=== PATIENT | male | born 1980 | race African-American/Black ===

== ENCOUNTER 2022-08-26 07:16 | Outpatient (REF) | payer BC, SELFPAY ==
[2022-08-26 07:22] LABS: MANUAL DIFF FLAG NO
[2022-08-26 08:22] LABS: Basophils Percent Auto 0.3 % (0-2); Eosinophils Absolute Auto 0.4 X10*3/uL (0.0-0.4); Eosinophils Percent Auto 4.3 % (0-4); Hematocrit 44.9 % (42.0-52.0); Hemoglobin 14.6 g/dl (14.0-18.0); Imm Gran Abs Auto 0.03 X10*3/uL (0.00-0.03); Imm Gran Pct Auto 0.3 % (0.0-0.4); Lymphocytes Absolute Auto 1.9 X10*3/uL (1.2-4.9); Lymphocytes Percent Auto 19.1 % (20-40); Mean Corpuscular HGB Conc 32.5 g/dl (31.0-36.0); Mean Corpuscular Hemoglobin 27.9 pg (27.0-33.0); Mean Corpuscular Volume 85.9 fL (80.0-98.0); Mean Platelet Volume 9.4 fL (9.4-12.4); Monocytes Absolute Auto 0.6 X10*3/uL (0.1-1.2); Monocytes Percent Auto 6.1 % (2-11); Neutrophils Absolute Auto 6.8 x10*3/uL (2.0-8.3); Neutrophils Percent Auto 69.9 % (45-73); Platelet Count 300 X10*3/uL (160-400); Red Blood Count 5.23 X10*6/uL (4.60-5.80); Red Cell Distribution Width 13.1 % (11.0-16.0); White Blood Count 9.8 X10*3/uL (4.8-10.8)
[2022-08-26 08:59] LABS: Alanine Aminotransferase 22 U/L (0-40); Albumin Level 4.5 g/dL (3.5-5.0); Alkaline Phosphatase 64 U/L (39-117); Anion Gap 12 (12-20); Aspartate Amino Transferase 20 U/L (5-37); Bilirubin Total 0.4 mg/dL (0.0-1.0); Blood Urea Nitrogen 20 mg/dL (9-16); Calcium 9.3 mg/dL (8.4-10.2); Carbon Dioxide 29 mmol/L (22-29); Chloride 105 mmol/L (96-108); Cholesterol 197 mg/dL; Estimated Glomerular Filt Rate > 60; Glucose Fasting 94 mg/dL (60-99); HDL Cholesterol 35 mg/dL; LDL Cholesterol Calculated 123 mg/dl; Sodium 142 mmol/L (135-145); Total Protein 7.3 g/dL (6.5-8.0); Triglycerides 197 mg/dL
== END 2022-08-26 07:17 | disposition home or self-care (01) ==
LOC: HO.LAB 07:16
PROVIDERS: PCP Internal Medicine; Visit Provider Internal Medicine
DX: Z00.00 Encounter for general adult medical examination without abnormal findings (principal); Z13.0 Encounter for screening for diseases of the blood and blood-forming organs and certain disorders involving the immune mechanism
CPT/HCPCS: 36415; 80053; 80061; 85025

== ENCOUNTER 2023-06-01 14:17 | Outpatient (AMB) | payer BC, SELFPAY ==
[2023-06-01 14:20] VITALS: BP 178/120; PULSE 90; O2SAT 99; BMI 53.1
--- NOTE | 2023-06-01 14:20 | A.OFFPC_ITS ---
Vital Signs 06/01/23 14:20 Height 5 ft 6 in Weight 329 lb BMI 53.1 BP 178/120 H Blood Pressure Location Lt brachial Position Sitting Pulse 90 Pulse Source Pulse Oximeter Pulse Oximetry (%) 99 Oxygen Delivery Method Room Air Intake Visit Reasons: Physical Exam Bran Mixer Required: No Accompanied by: Self / Same As Patient Allergies ibuprofen [Advil] Allergy (Unknown, Verified 06/01/23 14:20) hives Medication List - Last Reconciled 06/01/23 by Omar Fajardo MD albuterol sulfate 90 mcg/actuation (ProAir HFA) 2 puffs inhalation Q4H PRN 90 days metoprolol tartrate 25 mg PO BID Tobacco use date assessed: 08/31/22 Dental Screening Dental Screen Date: 06/01/23 Did you have a dental visit in the last 12 months?: Yes Did you have a dental problem in the last 6 months where you did not have access to dental care?: No Was dental information given to patient?: Patient has dentist HPI Physical Exam HPI Details HTN and asthma on Rx; PFSH Medical History Morbid obesity Hypertension Surgical History History of wisdom tooth extraction Family History Father No problems noted. Mother No problems noted. Social History Housing: House Patient Tobacco Use Status: Never used Tobacco e-Cigarette/Vaping Use: Never Used Second Hand Smoke Exposure: No service: No Current occupational status: employed Cognitive needs: No Hearing needs: No Vision needs: Yes Questionnaire PHQ-9 Over the last 2 weeks, how often have you been bothered by any of the following problems? 1. Little interest or pleasure in doing things: not at all 2. Feeling down, depressed, or hopeless: not at all 3. Trouble falling or staying asleep, or sleeping too much: not at all 4. Feeling tired or having little energy: not at all 5. Poor appetite or overeating: not at all 6. Feeling bad about yourself - or that you are a failure or have let yourself or your family down: not at all 7. Trouble concentrating on things, such as reading the newspaper or watching television: not at all 8. Moving or speaking so slowly that other people could have noticed. Or the opposite - being so fidgety or restless that you have been moving around a lot more than usual: not at all 9. Thoughts that you would be better off or of hurting yourself in some way: not at all Total score: 0 Depression Screening Interpretation: Negative Depression Screening Done: Yes 17431 - PHQ-9 Billing: Yes Source: Developed by Drs. Grzegorz Barragan, Judi Calvillo, Kb Baker and colleagues, with an educational leticia from [employer]. Thrive Questionnaire Date Thrive assessed: 08/31/22 AUDIT C Alcohol Use Questionnaire (AUDIT-C) Score Reviewed/Action Taken: Yes MO-7 AMB Questionnaire MO-7 Date MO - 7 assessed: 08/31/22 Source: Developed by Drs. Grzegorz Barragan, Judi Calvillo, Kb Baker and colleagues, with an educational leticia from [employer]. Review of Systems Const Denies chills, Denies fatigue, Denies headache(s) and Denies weight loss Eyes Denies change in vision, Denies diplopia and Denies eye pain ENT Denies vertigo, Denies dizziness, Denies headache(s) and Denies nasal discharge Card Denies chest pain, Denies rapid heart rate and Denies dyspnea on exertion Resp Denies chest congestion, Denies cough, Denies pain with cough and Denies dyspnea on exertion GI Denies abdominal pain, Denies hematochezia and Denies change in bowel habits Musc Denies myalgias, Denies arthralgias and Denies joint swelling Skin/Breast Denies lesions and Denies unusual bruising Neuro Denies vertigo, Denies dizziness, Denies headache(s) and Denies focal weakness Endo Denies fatigue Physical exam (Primary Care) Vital Signs: Last Vital Signs Pulse 90 06/01/23 14:20 BP 178/120 H 06/01/23 14:20 Pulse Ox 99 06/01/23 14:20 Oxygen Delivery Method Room Air 06/01/23 14:20 BMI result Body Mass Index 53.1 Tobacco/Smoking Status: Tobacco use Status Tobacco use date assessed 08/31/22 06/01/23 14:21 Patient Tobacco Use Status Never used Tobacco 06/01/23 14:21 e-Cigarette/Vaping Use Never Used 06/01/23 14:21 PHQ-9: PHQ-9 Score PHQ-9: Total score 0 06/01/23 14:41 Depression Screening Interpretation: Negative Thrive Assessment: Date of Thrive Assessment Date Thrive assessed 08/31/22 06/01/23 14:21 Const General: cooperative, healthy appearing and no acute distress Orientation/consciousness: oriented to person, oriented to place and oriented to time HENAK Head: Yes normal to inspection, Yes normocephalic and Yes atraumatic Mouth: Normal oral and palatal mucosa present and tongue normal Throat: Yes posterior oropharynx normal and Yes uvula midline Eyes General: appearance normal, both eyes and all related structures Neck Neck: Yes normal visual inspection, Yes full ROM and Yes no lymphadenopathy Thyroid: Thyroid normal Carotids: normal carotid upstroke Chest Chest palpation & inspection: normal inspection of the chest Resp Effort & Inspection: normal respiratory effort and able to speak in complete sentences Auscultation: clear to auscultation bilaterally Cardio Jugular venous distension: no JVD Palpation: normal PMI Rate: regular rate Rhythm: regular rhythm Heart sounds: S1 normal heart sound present and S2 normal heart sound present GI Inspection: Yes normal to inspection Palpation (GI): Soft to palpation and No hepatosplenomegaly present Auscultation: normal bowel sounds General: Yes no CVA tenderness Back/Spine/Pelvis Back: no CVA tenderness Skin General skin exam: no rashes or lesions noted Neuro General: oriented to person, oriented to place and oriented to time Extrem General: Yes normal to inspection and Yes full ROM Office Procedures Flu Questionnaire Does the patient have a severe egg allergy?: No Does the patient have severe life threatening allergies?: No Does the patient have a fever or illness today?: No Has the patient ever had Guillain-[place] Syndrome?: No Has the patient ever had any past reaction to a flu shot?: No Immunizations flu vacc [id number] 6mos up(PF) 60 mcg(15 mcgx4)/0.5 mL IM syringe Performing Provider: Omar Fajardo MD Performing Location: [facility] Documented (not given) by: CECILY Johnston on 06/01/23 14:41 Reason Not Given: Not Given Assessment and Plan Assessment & Plan (1) Hypertension: Code(s): I10 - Essential (primary) hypertension Plan: labs and f/u 2 weeks (2) Physical exam: Code(s): Z00.00 - Encounter for general adult medical examination without abnormal findings Plan: labs (3) Asthma: Code(s): J45.909 - Unspecified asthma, uncomplicated Plan: stable; same rx Orders: Orders Lipid Panel Today E78.5 - Hyperlipidemia, unspecified Complete Blood Count Auto Diff Today D64.9 - Anemia, unspecified Comprehensive Lavina. Panel Fast Today N28.9 - Disorder of kidney and ureter, unspecified Influenza [id number] Immunization Today Z23 - Encounter for immunization Thyroid Stimulating Hormone Today E03.9 - Hypothyroidism, unspecified Coding Level of Care Code Est Pt Prev Care 40-64y(52223) Diagnoses Hypertension I10 Physical exam Z00.00 Asthma J45.909
== END 2023-06-01 14:35 | disposition home or self-care (01) ==
PROVIDERS: PCP Internal Medicine; Visit Provider Internal Medicine
DX: Z00.00 Encounter for general adult medical examination without abnormal findings (principal); F33.9 Major depressive disorder, recurrent, unspecified; E66.3 Overweight
CPT/HCPCS: 99395; 99396

== ENCOUNTER 2023-09-09 07:30 | Outpatient (REF) | payer BC, SELFPAY ==
[2023-09-09 07:55] LABS: MANUAL DIFF FLAG NO
[2023-09-09 09:14] LABS: Basophils Percent Auto 0.4 % (0-2); Eosinophils Absolute Auto 0.5 X10*3/uL (0.0-0.4); Eosinophils Percent Auto 5.3 % (0-4); Hematocrit 45.3 % (42.0-52.0); Hemoglobin 14.5 g/dl (14.0-18.0); Imm Gran Abs Auto 0.03 X10*3/uL (0.00-0.03); Imm Gran Pct Auto 0.3 % (0.0-0.4); Lymphocytes Absolute Auto 1.8 X10*3/uL (1.2-4.9); Lymphocytes Percent Auto 20.6 % (20-40); Mean Corpuscular Hemoglobin 27.6 pg (27.0-33.0); Mean Corpuscular Volume 86.1 fL (80.0-98.0); Mean Platelet Volume 9.1 fL (9.4-12.4); Monocytes Absolute Auto 0.5 X10*3/uL (0.1-1.2); Monocytes Percent Auto 6.1 % (2-11); Neutrophils Percent Auto 67.3 % (45-73); Platelet Count 326 X10*3/uL (160-400); Red Blood Count 5.26 X10*6/uL (4.60-5.80); Red Cell Distribution Width 13.3 % (11.0-16.0); White Blood Count 8.9 X10*3/uL (4.8-10.8)
[2023-09-09 10:09] LABS: Alanine Aminotransferase 26 U/L (0-40); Albumin Level 4.3 g/dL (3.5-5.0); Alkaline Phosphatase 57 U/L (39-117); Anion Gap 13 (12-20); Aspartate Amino Transferase 20 U/L (5-37); Bilirubin Total 0.4 mg/dL (0.0-1.0); Blood Urea Nitrogen 17 mg/dL (9-16); Calcium 9.4 mg/dL (8.4-10.2); Carbon Dioxide 29 mmol/L (22-29); Chloride 105 mmol/L (96-108); Cholesterol 214 mg/dL (<200); Estimated Glomerular Filt Rate > 60; Glucose Fasting 99 mg/dL (60-99); HDL Cholesterol 39 mg/dL (>40); LDL Cholesterol Calculated 142 mg/dL (<100); Potassium 4.3 mmol/L (3.3-5.1); Sodium 143 mmol/L (135-145); Total Protein 7.7 g/dL (6.5-8.0); Triglycerides 167 mg/dL (<150)
[2023-09-09 10:25] LABS: Thyroid Stimulating Hormone 2.44 uIU/mL (0.32-4.0)
== END 2023-09-09 07:31 | disposition home or self-care (01) ==
LOC: HO.LAB 07:30
PROVIDERS: PCP Internal Medicine; Visit Provider Internal Medicine
DX: D64.9 Anemia, unspecified (principal); N28.9 Disorder of kidney and ureter, unspecified; E03.9 Hypothyroidism, unspecified; E78.5 Hyperlipidemia, unspecified
CPT/HCPCS: 36415; 80053; 80061; 84443; 85025

== ENCOUNTER 2023-09-11 14:17 | Outpatient (AMB) | payer BC, SELFPAY ==
[2023-09-11 14:20] VITALS: BP 156/90; PULSE 78; O2SAT 99; BMI 54.1
--- NOTE | 2023-09-11 14:20 | A.OFFPC_ITS ---
Vital Signs 09/11/23 14:20 Height 5 ft 6 in Weight 335 lb BMI 54.1 BP 156/90 H Blood Pressure Location Lt brachial Position Sitting Pulse 78 Pulse Source Pulse Oximeter Pulse Oximetry (%) 99 Oxygen Delivery Method Room Air Intake Visit Reasons: 2 week follow up, rescheduled from 07/03 End Finder Forming Department Required: No Switchboard Operator Assistant: Not Required per policy Accompanied by: Self / Same As Patient Allergies ibuprofen [Advil] Allergy (Unknown, Verified 09/11/23 14:21) hives Tobacco use date assessed: 09/11/23 Dental Screening Dental Screen Date: 09/11/23 Did you have a dental visit in the last 12 months?: Yes Did you have a dental problem in the last 6 months where you did not have access to dental care?: No Was dental information given to patient?: Patient has dentist HPI 2 week follow up, rescheduled from 07/03 HPI Details HTN on rx; compliant; bp better but still high PFSH Medical History Morbid obesity Hypertension Surgical History History of wisdom tooth extraction Family History Father No problems noted. Mother No problems noted. Social History Housing: House Patient Tobacco Use Status: Never used Tobacco e-Cigarette/Vaping Use: Never Used Second Hand Smoke Exposure: No service: No Current occupational status: employed Cognitive needs: No Hearing needs: No Vision needs: Yes Questionnaire PHQ-9 Over the last 2 weeks, how often have you been bothered by any of the following problems? 1. Little interest or pleasure in doing things: not at all 2. Feeling down, depressed, or hopeless: not at all 3. Trouble falling or staying asleep, or sleeping too much: not at all 4. Feeling tired or having little energy: not at all 5. Poor appetite or overeating: not at all 6. Feeling bad about yourself - or that you are a failure or have let yourself or your family down: not at all 7. Trouble concentrating on things, such as reading the newspaper or watching television: not at all 8. Moving or speaking so slowly that other people could have noticed. Or the opposite - being so fidgety or restless that you have been moving around a lot more than usual: not at all 9. Thoughts that you would be better off or of hurting yourself in some way: not at all Total score: 0 Depression Screening Interpretation: Negative Depression Screening Done: Yes 52424 - PHQ-9 Billing: Yes Source: Developed by Drs. Grzegorz Barragan, Judi Calvillo, Kb Baker and colleagues, with an educational leticia from [employer]. Thrive Questionnaire Date Thrive assessed: 09/11/23 I am a: Patient What is your living situation today?: I have a steady place to live Within the past 12 months, did the food you bought not last and you didn't have the money to get more?: Never true Within the past 12 months, did you worry whether your food would run out before you got money to buy more?: Never true Do you have trouble paying for medicines?: No Do you have trouble getting transportation to medical appointments?: No Do you have trouble paying your heating and electricity bill?: No Do you have trouble taking care of your child, family member or friend?: No Do you have trouble with day-to-day activities such as bathing, preparing meals, shopping, managing finances, etc.?: No Are you currently unemployed and looking for a job?: No Are you interested in more education?: No THRIVE Score: 0 AUDIT C Alcohol Use Questionnaire (AUDIT-C) 1. How often do you have a drink containing alcohol?: Never Total Score: 0 Score Reviewed/Action Taken: Yes MO-7 AMB Questionnaire MO-7 Date MO - 7 assessed: 09/11/23 Feeling nervous, anxious, or on edge: 0 = Not at all Not being able to stop or control worryin = Not at all Worrying too much about different things: 0 = Not at all Trouble relaxin = Not at all Being so restless that it is hard to sit still: 0 = Not at all Becoming easily annoyed or irritable: 0 = Not at all Feeling afraid as if something awful might happen: 0 = Not at all Total MO-7 score (0-4 normal; 5-9 mild; 10-14 moderate; 15-21 severe): 0 Source: Developed by Drs. Grzegorz Barragan, Judi Calvillo, Kb Baker and colleagues, with an educational leticia from [employer]. Review of Systems Const Denies chills, Denies headache(s) and Denies weight loss ENT Denies headache(s) Card Denies chest pain, Denies syncope, Denies irregular heart rhythm and Denies dyspnea Resp Denies chest congestion, Denies cough and Denies dyspnea GI Denies abdominal pain, Denies change in stool character, Denies nausea and Denies vomiting Musc Denies deformity and Denies joint swelling Neuro Denies syncope and Denies headache(s) Physical exam (Primary Care) Vital Signs: Last Vital Signs Pulse 78 09/11/23 14:20 BP 156/90 H 09/11/23 14:20 Pulse Ox 99 09/11/23 14:20 Oxygen Delivery Method Room Air 09/11/23 14:20 BMI result Body Mass Index 54.1 Tobacco/Smoking Status: Tobacco use Status Tobacco use date assessed 09/11/23 09/11/23 14:22 Patient Tobacco Use Status Never used Tobacco 09/11/23 14:22 e-Cigarette/Vaping Use Never Used 09/11/23 14:22 PHQ-9: PHQ-9 Score PHQ-9: Total score 0 09/11/23 14:22 Depression Screening Interpretation: Negative Thrive Assessment: Date of Thrive Assessment Date Thrive assessed 09/11/23 09/11/23 14:22 Const General: cooperative, comfortable, no acute distress and alert Neck Neck: Yes no lymphadenopathy Thyroid: Thyroid normal Resp Effort & Inspection: normal respiratory effort Auscultation: clear to auscultation bilaterally Percussion: percussion normal Cardio Jugular venous distension: no JVD Palpation: normal PMI Rate: regular rate Rhythm: regular rhythm Heart sounds: S1 normal heart sound present and S2 normal heart sound present GI Inspection: Yes normal to inspection Palpation (GI): No hepatosplenomegaly present Skin General skin exam: no rashes or lesions noted Extrem General: Yes no clubbing, cyanosis or edema Assessment and Plan Assessment & Plan (1) Hypertension: Code(s): I10 - Essential (primary) hypertension Plan: increase metoprolol to 50mg bid Medications: New metoprolol tartrate 50 mg PO BID 180 tabs 3RF Coding Level of Care Code Est Pt Level 3 (84430) Diagnoses Hypertension I10
== END 2023-09-11 14:36 | disposition home or self-care (01) ==
PROVIDERS: PCP Internal Medicine; Visit Provider Internal Medicine
DX: I10 Essential (primary) hypertension (principal)
CPT/HCPCS: 99213

== ENCOUNTER 2023-10-10 14:33 | Outpatient (AMB) | payer BC, SELFPAY ==
[2023-10-10 14:33] VITALS: BP 178/100; PULSE 79; O2SAT 98; BMI 54.7
--- NOTE | 2023-10-10 14:33 | MHC.PC.OV ---
Vital Signs 10/10/23 14:33 Height 5 ft 6 in Weight 339 lb BMI 54.7 BP 178/100 H Blood Pressure Location Lt brachial Position Sitting Pulse 79 Pulse Source Pulse Oximeter Pulse Oximetry (%) 98 Oxygen Delivery Method Room Air Intake Visit Reasons: 1 month f/u Pre K Special Education Teacher Required: No Dry Transfer Worker: Not Required per policy Accompanied by: Self / Same As Patient Allergies ibuprofen [Advil] Allergy (Unknown, Verified 09/11/23 14:21) hives Medication List - Last Reconciled 10/11/23 by Omar Fajardo MD albuterol sulfate 90 mcg/actuation (ProAir HFA) 2 puffs inhalation Q4H PRN 90 days hydrochlorothiazide 25 mg PO DAILY metoprolol tartrate 50 mg PO BID Tobacco use date assessed: 09/11/23 Dental Screening Dental Screen Date: 10/10/23 Did you have a dental visit in the last 12 months?: Yes Did you have a dental problem in the last 6 months where you did not have access to dental care?: No Was dental information given to patient?: Patient has dentist HPI 1 month f/u HPI Details BP f/u; still high; compliant [facility] Medical History Morbid obesity Hypertension Surgical History History of wisdom tooth extraction Family History (Updated 10/10/23 @ 14:34 by CECILY Johnston) Father No problems noted. Mother No problems noted. Social History Housing: House Patient Tobacco Use Status: Never used Tobacco e-Cigarette/Vaping Use: Never Used Second Hand Smoke Exposure: No service: No Current occupational status: employed Cognitive needs: No Hearing needs: No Vision needs: Yes (glasses) Questionnaire Thrive Questionnaire Date Thrive assessed: 09/11/23 MO-7 AMB Questionnaire MO-7 Date MO - 7 assessed: 09/11/23 Source: Developed by Drs. Grzegorz Barragan, Judi Calvillo, Kb Baker and colleagues, with an educational leticia from [employer]. Review of Systems Const Denies chills, Denies headache(s) and Denies weight loss ENT Denies headache(s) Card Denies chest pain, Denies syncope, Denies irregular heart rhythm and Denies dyspnea Resp Denies chest congestion, Denies cough and Denies dyspnea GI Denies abdominal pain, Denies change in stool character, Denies nausea and Denies vomiting Musc Denies deformity and Denies joint swelling Neuro Denies syncope and Denies headache(s) Physical exam (Primary Care) Vital Signs: Last Vital Signs Pulse 79 10/10/23 14:33 BP 178/100 H 10/10/23 14:33 Pulse Ox 98 10/10/23 14:33 Oxygen Delivery Method Room Air 10/10/23 14:33 BMI result Body Mass Index 54.7 Tobacco/Smoking Status: Tobacco use Status Tobacco use date assessed 09/11/23 10/10/23 14:34 Patient Tobacco Use Status Never used Tobacco 10/10/23 14:34 e-Cigarette/Vaping Use Never Used 10/10/23 14:34 Thrive Assessment: Date of Thrive Assessment Date Thrive assessed 09/11/23 10/10/23 14:34 Const General: cooperative, comfortable, no acute distress and alert Neck Neck: Yes no lymphadenopathy Thyroid: Thyroid normal Resp Effort & Inspection: normal respiratory effort Auscultation: clear to auscultation bilaterally Percussion: percussion normal Cardio Jugular venous distension: no JVD Palpation: normal PMI Rate: regular rate Rhythm: regular rhythm Heart sounds: S1 normal heart sound present and S2 normal heart sound present GI Inspection: Yes normal to inspection Palpation (GI): No hepatosplenomegaly present Skin General skin exam: no rashes or lesions noted Extrem General: Yes no clubbing, cyanosis or edema Assessment and Plan Assessment & Plan (1) Hypertension: Code(s): I10 - Essential (primary) hypertension Plan: add rx Medications: New hydrochlorothiazide 25 mg PO DAILY 90 tabs 8RF Coding Level of Care Code Est Pt Level 3 (52751) Diagnoses Hypertension I10
== END 2023-10-10 14:45 | disposition home or self-care (01) ==
PROVIDERS: PCP Internal Medicine; Visit Provider Internal Medicine
DX: I10 Essential (primary) hypertension (principal)
CPT/HCPCS: 99213

== ENCOUNTER 2023-11-15 11:30 | Outpatient (AMB) | payer BC, SELFPAY ==
[2023-11-15 11:32] VITALS: BP 162/110; PULSE 70; O2SAT 95; BMI 53.9
--- NOTE | 2023-11-15 11:32 | A.OFFPC_ITS ---
Vital Signs 11/15/23 11:32 Height 5 ft 6 in Weight 334 lb 0.2 oz BMI 53.9 BP 162/110 H Blood Pressure Location Lt brachial Position Sitting Pulse 70 Pulse Source Pulse Oximeter Pulse Oximetry (%) 95 Oxygen Delivery Method Room Air Intake Visit Reasons: 1mth f/u Die Try Out Worker Stamping Required: No Allergies ibuprofen [Advil] Allergy (Unknown, Verified 11/15/23 11:33) hives Medication List - Last Reconciled 11/16/23 by Omar Fajardo MD albuterol sulfate 90 mcg/actuation (ProAir HFA) 2 puffs inhalation Q4H PRN 90 days hydrochlorothiazide 25 mg PO DAILY metoprolol tartrate 50 mg PO BID Tobacco use date assessed: 11/15/23 Dental Screening Dental Screen Date: 10/10/23 HPI 1mth f/u HPI Details HTN; BP better on new rx at home PFSH Medical History Morbid obesity Hypertension Surgical History History of wisdom tooth extraction Family History (Updated 10/10/23 @ 14:34 by CECILY Johnston) Father No problems noted. Mother No problems noted. Social History Housing: House Patient Tobacco Use Status: Never used Tobacco e-Cigarette/Vaping Use: Never Used Second Hand Smoke Exposure: No service: No Current occupational status: employed Cognitive needs: No Hearing needs: No Vision needs: Yes (glasses) Questionnaire PHQ-9 Over the last 2 weeks, how often have you been bothered by any of the following problems? 1. Little interest or pleasure in doing things: not at all 2. Feeling down, depressed, or hopeless: not at all 3. Trouble falling or staying asleep, or sleeping too much: not at all 4. Feeling tired or having little energy: not at all 5. Poor appetite or overeating: not at all 6. Feeling bad about yourself - or that you are a failure or have let yourself or your family down: not at all 7. Trouble concentrating on things, such as reading the newspaper or watching television: not at all 8. Moving or speaking so slowly that other people could have noticed. Or the opposite - being so fidgety or restless that you have been moving around a lot more than usual: not at all 9. Thoughts that you would be better off or of hurting yourself in some way: not at all Total score: 0 Depression Screening Interpretation: Negative Depression Screening Done: Yes 96587 - PHQ-9 Billing: Yes Source: Developed by Drs. Grzegorz Barragan, Kb Green and colleagues, with an educational leticia from [employer]. Thrive Questionnaire Date Thrive assessed: 09/11/23 AUDIT C Alcohol Use Questionnaire (AUDIT-C) 1. How often do you have a drink containing alcohol?: Never Total Score: 0 Score Reviewed/Action Taken: Yes MO-7 AMB Questionnaire MO-7 Date MO - 7 assessed: 09/11/23 Source: Developed by Drs. Grzegorz Barragan, Kb Green and colleagues, with an educational leticia from [employer]. Review of Systems Const Denies chills, Denies headache(s) and Denies weight loss ENT Denies headache(s) Card Denies chest pain, Denies syncope, Denies irregular heart rhythm and Denies dyspnea Resp Denies chest congestion, Denies cough and Denies dyspnea GI Denies abdominal pain, Denies change in stool character, Denies nausea and Denies vomiting Musc Denies deformity and Denies joint swelling Neuro Denies syncope and Denies headache(s) Physical exam (Primary Care) Vital Signs: Last Vital Signs Pulse 70 11/15/23 11:32 BP 162/110 H 11/15/23 11:32 Pulse Ox 95 11/15/23 11:32 Oxygen Delivery Method Room Air 11/15/23 11:32 BMI result Body Mass Index 53.9 Tobacco/Smoking Status: Tobacco use Status Tobacco use date assessed 11/15/23 11/15/23 11:37 Patient Tobacco Use Status Never used Tobacco 11/15/23 11:37 e-Cigarette/Vaping Use Never Used 11/15/23 11:37 PHQ-9: PHQ-9 Score PHQ-9: Total score 0 11/15/23 11:37 Depression Screening Interpretation: Negative Thrive Assessment: Date of Thrive Assessment Date Thrive assessed 09/11/23 11/15/23 11:37 Const General: cooperative, comfortable, no acute distress and alert Neck Neck: Yes no lymphadenopathy Thyroid: Thyroid normal Resp Effort & Inspection: normal respiratory effort Auscultation: clear to auscultation bilaterally Percussion: percussion normal Cardio Jugular venous distension: no JVD Palpation: normal PMI Rate: regular rate Rhythm: regular rhythm Heart sounds: S1 normal heart sound present and S2 normal heart sound present GI Inspection: Yes normal to inspection Palpation (GI): No hepatosplenomegaly present Skin General skin exam: no rashes or lesions noted Extrem General: Yes no clubbing, cyanosis or edema Assessment and Plan Assessment & Plan (1) Hypertension: Code(s): I10 - Essential (primary) hypertension Plan: stable; same rx; cont to lose weight Coding Level of Care Code Est Pt Level 3 (87932) Diagnoses Hypertension I10
== END 2023-11-15 11:49 | disposition home or self-care (01) ==
PROVIDERS: PCP Internal Medicine; Visit Provider Internal Medicine
DX: I10 Essential (primary) hypertension (principal)
CPT/HCPCS: 99213

== ENCOUNTER 2024-01-18 11:33 | Outpatient (AMB) | payer BC, SELFPAY ==
[2024-01-18 11:35] VITALS: BP 168/118; PULSE 63; O2SAT 96; BMI 53.4
--- NOTE | 2024-01-18 11:35 | MHC.PC.OV ---
Vital Signs 01/18/24 11:35 Height 5 ft 6 in Weight 331 lb BMI 53.4 BP 168/118 H Blood Pressure Location Lt brachial Position Sitting Pulse 63 Pulse Source Pulse Oximeter Pulse Oximetry (%) 96 Oxygen Delivery Method Room Air Intake Visit Reasons: Meds Follow Up Allergies ibuprofen [Advil] Allergy (Unknown, Verified 11/15/23 11:33) hives Medication List - Last Reconciled 01/19/24 by Omar Fajardo MD albuterol sulfate 90 mcg/actuation (ProAir HFA) 2 puffs inhalation Q4H PRN 90 days hydrochlorothiazide 25 mg PO DAILY metoprolol tartrate 50 mg PO BID Tobacco use date assessed: 01/18/24 Dental Screening Dental Screen Date: 10/10/23 HPI Meds Follow Up HPI Details htn; compliant but bp has been high PFSH Medical History Morbid obesity Hypertension Surgical History History of wisdom tooth extraction Family History (Updated 10/10/23 @ 14:34 by CECILY Johnston) Father No problems noted. Mother No problems noted. Social History Housing: House Patient Tobacco Use Status: Never used Tobacco e-Cigarette/Vaping Use: Never Used Second Hand Smoke Exposure: No service: No Current occupational status: employed Cognitive needs: No Hearing needs: No Vision needs: Yes (glasses) Questionnaire Thrive Questionnaire Date Thrive assessed: 09/11/23 AUDIT C Alcohol Use Questionnaire (AUDIT-C) 1. How often do you have a drink containing alcohol?: Never 3. How often do you have six or more drinks on one occasion?: Never Total Score: 0 Score Reviewed/Action Taken: Yes MO-7 AMB Questionnaire MO-7 Date MO - 7 assessed: 09/11/23 Source: Developed by Drs. Grzegorz Barragan, Judi Calvillo, Kb Baker and colleagues, with an educational leticia from [employer]. Review of Systems Const Denies chills, Denies headache(s) and Denies weight loss ENT Denies headache(s) Card Denies chest pain, Denies syncope, Denies irregular heart rhythm and Denies dyspnea Resp Denies chest congestion, Denies cough and Denies dyspnea GI Denies abdominal pain, Denies change in stool character, Denies nausea and Denies vomiting Musc Denies deformity and Denies joint swelling Neuro Denies syncope and Denies headache(s) Physical exam (Primary Care) Vital Signs: Last Vital Signs Pulse 63 01/18/24 11:35 BP 168/118 H 01/18/24 11:35 Pulse Ox 96 01/18/24 11:35 Oxygen Delivery Method Room Air 01/18/24 11:35 BMI result Body Mass Index 53.4 Tobacco/Smoking Status: Tobacco use Status Tobacco use date assessed 01/18/24 01/18/24 11:40 Patient Tobacco Use Status Never used Tobacco 01/18/24 11:40 e-Cigarette/Vaping Use Never Used 01/18/24 11:40 Thrive Assessment: Date of Thrive Assessment Date Thrive assessed 09/11/23 01/18/24 11:40 Const General: cooperative, comfortable, no acute distress and alert Neck Neck: Yes no lymphadenopathy Thyroid: Thyroid normal Resp Effort & Inspection: normal respiratory effort Auscultation: clear to auscultation bilaterally Percussion: percussion normal Cardio Jugular venous distension: no JVD Palpation: normal PMI Rate: regular rate Rhythm: regular rhythm Heart sounds: S1 normal heart sound present and S2 normal heart sound present GI Inspection: Yes normal to inspection Palpation (GI): No hepatosplenomegaly present Skin General skin exam: no rashes or lesions noted Extrem General: Yes no clubbing, cyanosis or edema Assessment and Plan Assessment & Plan (1) Hypertension: Code(s): I10 - Essential (primary) hypertension Plan: increase metop to 100 bid Medications: New metoprolol tartrate 100 mg PO BID 60 tabs 8RF Discontinued metoprolol tartrate Discontinued Reason: Doctor's Order 50 mg PO BID 180 tabs 3RF Coding Level of Care Code Est Pt Level 3 (57902) Diagnoses Hypertension I10
== END 2024-01-18 11:51 | disposition home or self-care (01) ==
PROVIDERS: PCP Internal Medicine; Visit Provider Internal Medicine
DX: I10 Essential (primary) hypertension (principal)
CPT/HCPCS: 99213

== ENCOUNTER 2024-04-30 14:29 | Outpatient (AMB) | payer BC, SELFPAY ==
[2024-04-30 14:35] VITALS: BP 162/90; PULSE 70; O2SAT 94; BMI 52.9
--- NOTE | 2024-04-30 14:35 | A.OFFPC_ITS ---
Vital Signs 04/30/24 14:35 Height 5 ft 6 in Weight 328 lb BMI 52.9 BP 162/90 H Blood Pressure Location Lt brachial Position Sitting Pulse 70 Pulse Source Pulse Oximeter Pulse Oximetry (%) 94 Oxygen Delivery Method Room Air Intake Visit Reasons: 3 Month F/U Intake Note: Pt reports BP higher at doctor's office than when he takes it at home due to stress. Hospital Educator Required: No Accompanied by: Self / Same As Patient Allergies ibuprofen [Advil] Allergy (Unknown, Verified 04/30/24 14:37) hives Medication List - Last Reconciled 04/30/24 by Omar Fajardo MD albuterol sulfate 90 mcg/actuation 2 puffs inhalation Q4H PRN 90 days hydrochlorothiazide 25 mg PO DAILY metoprolol tartrate 100 mg PO BID Tobacco use date assessed: 01/18/24 Dental Screening Dental Screen Date: 10/10/23 HPI 3 Month F/U HPI Details HTN on rx; BP 130 at home; compliant [facility] Medical History Morbid obesity Hypertension Surgical History History of wisdom tooth extraction Family History (Updated 10/10/23 @ 14:34 by CECILY Johnston) Father No problems noted. Mother No problems noted. Social History Housing: House Patient Tobacco Use Status: Never used Tobacco Tobacco use type: Cigarette e-Cigarette/Vaping Use: Never Used Second Hand Smoke Exposure: No service: No Current occupational status: employed Cognitive needs: No Hearing needs: No Vision needs: Yes (glasses) Questionnaire PHQ-9 Over the last 2 weeks, how often have you been bothered by any of the following problems? 1. Little interest or pleasure in doing things: not at all 2. Feeling down, depressed, or hopeless: not at all 3. Trouble falling or staying asleep, or sleeping too much: not at all 4. Feeling tired or having little energy: not at all 5. Poor appetite or overeating: not at all 6. Feeling bad about yourself - or that you are a failure or have let yourself or your family down: not at all 7. Trouble concentrating on things, such as reading the newspaper or watching television: not at all 8. Moving or speaking so slowly that other people could have noticed. Or the opposite - being so fidgety or restless that you have been moving around a lot more than usual: not at all 9. Thoughts that you would be better off or of hurting yourself in some way: not at all Total score: 0 Depression Screening Interpretation: Negative Depression Screening Done: Yes [id number] - PHQ-9 Billing: Yes Source: Developed by Drs. Grzegorz Barragan, Kb Green and colleagues, with an educational leticia from [employer]. Thrive Questionnaire Date Thrive assessed: 09/11/23 Are you currently unemployed and looking for a job?: No AUDIT C Alcohol Use Questionnaire (AUDIT-C) 1. How often do you have a drink containing alcohol?: 2-4 times a month 2. How many drinks containing alcohol do you have on a typical day when you are drinking?: 5 or 6 3. How often do you have six or more drinks on one occasion?: Monthly Total Score: 6 MO-7 AMB Questionnaire MO-7 Date MO - 7 assessed: 09/11/23 Source: Developed by Drs. Grzegorz Barragan, Judi Calvillo, Kb Baker and colleagues, with an educational leticia from [employer]. Review of Systems Const Denies chills, Denies headache(s) and Denies weight loss ENT Denies headache(s) Card Denies chest pain, Denies syncope, Denies irregular heart rhythm and Denies dyspnea Resp Denies chest congestion, Denies cough and Denies dyspnea GI Denies abdominal pain, Denies change in stool character, Denies nausea and Denies vomiting Musc Denies deformity and Denies joint swelling Neuro Denies syncope and Denies headache(s) Physical exam (Primary Care) Vital Signs: Last Vital Signs Pulse 70 04/30/24 14:35 BP 162/90 H 04/30/24 14:35 Pulse Ox 94 04/30/24 14:35 Oxygen Delivery Method Room Air 04/30/24 14:35 BMI result Body Mass Index 52.9 Tobacco/Smoking Status: Tobacco use Status Tobacco use date assessed 01/18/24 04/30/24 14:43 Patient Tobacco Use Status Never used Tobacco 04/30/24 14:43 Tobacco use type Cigarette 04/30/24 14:43 e-Cigarette/Vaping Use Never Used 04/30/24 14:43 PHQ-9: PHQ-9 Score PHQ-9: Total score 0 04/30/24 14:45 Depression Screening Interpretation: Negative Thrive Assessment: Date of Thrive Assessment Date Thrive assessed 09/11/23 04/30/24 14:43 Const General: cooperative, comfortable, no acute distress and alert Neck Neck: Yes no lymphadenopathy Thyroid: Thyroid normal Resp Effort & Inspection: normal respiratory effort Auscultation: clear to auscultation bilaterally Percussion: percussion normal Cardio Jugular venous distension: no JVD Palpation: normal PMI Rate: regular rate Rhythm: regular rhythm Heart sounds: S1 normal heart sound present and S2 normal heart sound present GI Inspection: Yes normal to inspection Palpation (GI): No hepatosplenomegaly present Skin General skin exam: no rashes or lesions noted Extrem General: Yes no clubbing, cyanosis or edema Assessment and Plan Assessment & Plan (1) Hypertension: Code(s): I10 - Essential (primary) hypertension Plan: stable; same rx Orders: Referrals General Surgery Referral L72.3 - Sebaceous cyst Coding Level of Care Code Est Pt Level 3 (61046) Diagnoses Hypertension I10
== END 2024-04-30 14:53 | disposition home or self-care (01) ==
PROVIDERS: PCP Internal Medicine; Visit Provider Internal Medicine
DX: I10 Essential (primary) hypertension (principal)

== ENCOUNTER → 2024-04-30 14:29 | Outpatient (BNVA) | payer BC, SELFPAY | PROVIDERS: PCP Internal Medicine; Visit Provider Internal Medicine | DX: I10 Essential (primary) hypertension (principal) | CPT/HCPCS: 96127 ==

== ENCOUNTER 2024-05-21 09:17 | Outpatient (REF) | payer BC, SELFPAY | END 2024-05-21 09:18 | disposition home or self-care (01) | LOC: HO.LNP 09:17 | PROVIDERS: PCP Internal Medicine; Referring Provider Internal Medicine; Visit Provider Surgery | DX: D23.71 Other benign neoplasm of skin of right lower limb, including hip (principal) | CPT/HCPCS: 11404; 88304; 88305 ==

== ENCOUNTER 2024-05-21 09:17 | Outpatient (AMB) | payer BC, SELFPAY ==
--- NOTE | 2024-05-21 09:21 | A.OFFVIS_ITS ---
Vital Signs 05/21/24 09:28 Height 5 ft 6 in Weight 332 lb BMI 53.6 BP 155/78 H Blood Pressure Location Rt brachial Position Sitting Pulse 68 Intake Visit Reasons: Cyst~ Rt upper thigh Intake Note: Patient referred by pcp Dr. Fajardo for cyst on right upper thigh. Present for 1- 2yrs. Patient c/o: denies pain, oozing, itch. No personal hx of skin CA. Senior Trainer Required: No Accompanied by: Self / Same As Patient Allergies ibuprofen [Advil] Allergy (Unknown, Verified 05/21/24 09:27) hives Medication List - Last Reconciled 05/21/24 by Alejo Wright MD albuterol sulfate 90 mcg/actuation 2 puffs inhalation Q4H PRN 90 days albuterol sulfate 90 mcg/actuation (Ventolin HFA) 2 puffs inhalation Q6H PRN hydrochlorothiazide 25 mg PO DAILY metoprolol tartrate 100 mg PO BID HPI Comments Details: Patient presents for evaluation of a right thigh mass. He has had this year and a half's time. His increasing in size, become more symptomatic. He would like to have removed. He has no such lesions elsewhere. Chart was reviewed and patient evaluated [facility] Medical History Morbid obesity Hypertension Surgical History History of wisdom tooth extraction Family History Father No problems noted. Mother No problems noted. Social History Housing: House Patient Tobacco Use Status: Never used Tobacco Tobacco use type: Cigarette e-Cigarette/Vaping Use: Never Used Second Hand Smoke Exposure: No service: No Current occupational status: employed Cognitive needs: No Hearing needs: No Vision needs: Yes (glasses) Physical Exam Vital Signs: Last Vital Signs Pulse 68 05/21/24 09:28 BP 155/78 H 05/21/24 09:28 BMI result Body Mass Index 53.6 Extrem Other: Patient has roughly 3 x 2 cm mass soft tissue involving the anterior lateral distal right thigh. Clinically this is consistent with a dermatofibroma. Office Procedures Excision Details: Risks, benefits, alternatives of excision of right anterolateral leg soft tissue mass/dermatofibroma reviewed with the patient included but not limited to bleeding, infection, recurrence, numbness, pain, scarring the patient wished to proceed. All questions answered. Consent signed. After appropriate positioning, patient underwent 1% lidocaine and Betadine prepped and a longitudinal by elliptical incision with dimensions roughly 4 by 3 cm of dermatofibroma was uneventfully performed. Specimen sent to pathology. Wound was irrigated, secured hemostasis, and closed using running 3-0 Vicryl suture followed by Steri-Strips and sterile dressings. Patient tolerated procedure well. 51695-lxska/arms/legs 3.1-4cm Procedure code (CPT) selection complete Office Meds lidocaine 1 %-epinephrine 1:100,000 injection solution Performing Provider: Alejo Wright MD Performing Location: [facility] Administered by: Alejo Wright MD on 05/21/24 09:55 Dose Route Admin Location Dispensed Lot Number Expiration Date [facility] Weight Caller 10 mL Infiltration 10 mL Assessment & Plan Assessment & Plan (1) Dermatofibroma: Code(s): D23.9 - Other benign neoplasm of skin, unspecified Category: Surgical Plan: Patient was been given local instructions including ice to the wound periodically, Tylenol and Motrin p.r.n. pain, may remove outside dressing only in the Steri-Strips intact in 2 days and shower. No strenuous activities. Patient will see me as directed or p.r.n.. Orders: Orders AMB Excision Today .9 - Other benign neoplasm of skin, unspecified Medications: New lidocaine-epinephrine 1 %-1:100,000 10 mL Infiltration ONCE 30 mL 0RF D2.9 - Other benign neoplasm of skin, unspecified Coding Level of Care Code New Pt Level 5 (83813) Diagnoses Dermatofibroma D23.9 CPT Codes Trunk/Arms/Legs - CPT: 68328-egnjr/arms/legs 3.1-4cm ([id number])
[2024-05-21 09:28] VITALS: BP 155/78; PULSE 68; BMI 53.6
== END 2024-05-21 09:55 | disposition home or self-care (01) ==
PROVIDERS: PCP Internal Medicine; Referring Provider Internal Medicine; Visit Provider Surgery
DX: D23.71 Other benign neoplasm of skin of right lower limb, including hip (principal)
CPT/HCPCS: 11404; 99203

== ENCOUNTER 2024-05-28 10:06 | Outpatient (AMB) | payer BC, SELFPAY ==
--- NOTE | 2024-05-28 10:15 | MHC.OFFVIS ---
Intake Visit Reasons: s/p Excision Cyst~ Rt upper thigh Intake Note: Patient here s/p cyst excision on right upper thigh. Reports incision healing well. Patient c/o: steri strips fell off yesterday. Inspectors And Regulatory Officers Required: No Accompanied by: Self / Same As Patient Allergies ibuprofen [Advil] Allergy (Unknown, Verified 05/28/24 10:16) hives HPI Comments Details: Patient presents for follow-up. He has no wound issues or complaints. Pathology is benign. [facility] Medical History Morbid obesity Hypertension Surgical History History of wisdom tooth extraction Family History Father No problems noted. Mother No problems noted. Social History Housing: House Patient Tobacco Use Status: Never used Tobacco Tobacco use type: Cigarette e-Cigarette/Vaping Use: Never Used Second Hand Smoke Exposure: No service: No Current occupational status: employed Cognitive needs: No Hearing needs: No Vision needs: Yes (glasses) Physical Exam Extrem Other: Right thigh wound clean dry and intact healing very well Assessment & Plan Assessment & Plan (1) Postop check: Code(s): Z09 - Encounter for follow-up examination after completed treatment for conditions other than malignant neoplasm Category: Surgical Plan Patient was been given local instructions, and otherwise follow-up p.r.n.. All questions answered. Coding Level of Care Code Global (08153) Diagnoses Postop check Z09
== END 2024-05-28 10:26 | disposition home or self-care (01) ==
PROVIDERS: PCP Internal Medicine; Visit Provider Surgery
DX: Z09 Encounter for follow-up examination after completed treatment for conditions other than malignant neoplasm (principal)
CPT/HCPCS: 99024

== ENCOUNTER → 2024-05-28 10:06 | Outpatient (BNVA) | payer BC, SELFPAY | PROVIDERS: PCP Internal Medicine; Visit Provider Surgery ==

== ENCOUNTER 2024-06-15 09:31 | Emergency (ER) | payer BC, SELFPAY ==
[2024-06-15] VITALS (12 sets, daily range): BP systolic 141–179; BP diastolic 90–135; PULSE 92–124; RESP 16–28; TEMP 36–37.3; O2SAT 78–98; BMI 51.1
--- NOTE | 2024-06-15 09:35 | PC.NURSE ---
Pt. brought from triage back to ED bed 12. Per brand inspector, pt.'s SPO2 sats were ~87% on RA and WOB was markedly increased. Pt. in tripod position upon sitting on stretcher in ED bed 12. KELLY Anaya, Alex Shook MD, and this RN to bedside.
--- NOTE | 2024-06-15 09:36 | PC.NURSE ---
Pt. is on rn care transition and continous SPO2 monitor at this time
--- NOTE | 2024-06-15 09:37 | PC.NURSE ---
Per verbal orders of KELLY Anaya, 0.4mg administered to pt.'s left thigh
--- NOTE | 2024-06-15 09:40 | PC.NURSE ---
18G peripheral IV inserted to pt.'s RAC by KELLY. Tolerated well. Good blood return and flushes well without difficulty or pain.
--- NOTE | 2024-06-15 09:44 | PC.NURSE ---
incomplete vitals on pt d/t acuity of pts condition, pt brought immediately back to room 12, Maria Antonia Philip informed and at bedside, Loli MENDOZA at bedside. IM 0.4mg IM Epinephrine administered to L thigh immediately, pt placed on oxymask for o2 85%
[2024-06-15] MEDS: dexAMETHasone sod phosphate 10 MG/ML VIAL IVPUSH (09:52)
[2024-06-15] MEDS: diphenhydrAMINE HCL 50 MG/ML VIAL IVPUSH (09:52)
[2024-06-15] MEDS: Famotidine/PF 20 MG/2 ML VIAL IVPUSH (09:52)
--- NOTE | 2024-06-15 09:54 | PC.NURSE ---
Attempted to trial pt. off of 15L non-rebreather to 3L NC d/t pt. reporting feeling slightly better. When trialed on 3L NC for a moment, pt. was noted to be at 77% SPO2 with a good pleth. Pt. was then put back on 15L via non-rebreather
--- NOTE | 2024-06-15 09:55 | PC.NURSE ---
Pt. moved from ED bed 12 to ED bed 5. Report to Trena Wise RN
--- NOTE | 2024-06-15 10:00 | PC.NURSE ---
pt originally in ED12 - noted to be in respiratory distress displaying w/ angioedema. noted to be at 78% on 3L via NC. pt displays w/ sob/wob. use of accessory muscles used. pt transferred to ED5 immediately - RT/RN/PA bedside. pt placed on 15L via nonrebreather w/ good effect. sinus tachy on the director insurance. hypertensive. medication administered by previous RN prior to transferring to ED5. effectiveness pending.
--- NOTE | 2024-06-15 10:00 | PC.NURSE ---
Per verbal orders of KELLY Anaya, second dose of 0.4mg Epinephrine IM administered to pt.'s right deltoid
[2024-06-15] MEDS: Albuterol Sulfate 7.5 MG, Albuterol/Iprat 2.5/0.5MG 3 ML 3 ML INHALE (10:08)
--- NOTE | 2024-06-15 10:09 | PC.NURSE ---
pt taken off of 15L via nonrebreather/placed on 2L via NC by RT. pt currently receiving breathing treatment. pt tolerating transition well. pt displays w/ decreased sob/wob. respirations even/slightly labored. otherwise remains sinus tachy on the color television console monitor. hypertensive. provider notified/aware.
--- NOTE | 2024-06-15 10:10 | ED_ITS ---
HPI - Allergic Reaction General Chief complaint: Allergic Reaction Stated complaint: allergic reaction to meds closing of throat Time Seen by Provider: 06/15/24 09:39 Source: patient Mode of arrival: ambulatory Limitations: no limitations History of Present Illness ED Provider: KELLY Ritchie HPI narrative: This is a 44-year-old male history of obesity, hypertension, asthma presenting to the emergency department with difficulty breathing status post taking Excedrin migraine at approximately 08:00. Patient reports he knows that he is allergic to ibuprofen, he checked the bottle and he did not see ibuprofen listed as an active ingredient. He comes in he is having difficulty breathing and he feels like his bottom lip is becoming swollen. He took 1 of Benadryl prior to arrival. He reports he feels like his throat is closing and he can not breathe. Denies fevers, chills, chest pain, nausea, vomiting, abdominal pain, headache, vision changes, dizziness and weakness. Related Data Previous Rx's ?Medication ?Instructions ?Recorded hydrochlorothiazide 25 mg tablet 25 mg PO DAILY #90 tabs 10/10/23 metoprolol tartrate 100 mg tablet 100 mg PO BID #60 tabs 01/22/24 albuterol sulfate 90 mcg/actuation 2 puff inhalation Q4H PRN 02/05/24 aerosol inhaler shortness of breath or wheezing 90 days #8.5 grams albuterol sulfate 90 mcg/actuation 2 puff inhalation Q6H PRN 05/16/24 aerosol inhaler (Ventolin HFA) shortness of breath or wheezing #8.5 grams diphenhydramine HCl 25 mg capsule 50 mg (2 x 25 mg) PO BID PRN 06/15/24 (Benadryl) allergic reaction #30 caps epinephrine 0.3 mg/0.3 mL 0.3 mg (0.3 mL) IM Q4H PRN 06/15/24 injection, auto-injector (EpiPen anaphylaxis #2 ea 2-Buddy) famotidine 20 mg tablet (Pepcid) 20 mg PO DAILY 2 weeks #14 tabs 06/15/24 prednisone 20 mg tablet 40 mg (2 x 20 mg) PO DAILY 5 days 06/15/24 #10 tabs Allergies Allergy/AdvReac Type Severity Reaction Status Date / Time ibuprofen [Advil] Allergy Unknown hives Verified 06/15/24 09:36 Review of Systems Review of Systems: Yes all other systems are reviewed and are negative [facility] Past Medical History Attestation statement: The following information was validated with the patient. Source: old records reviewed and nursing notes reviewed Medical History Morbid obesity Hypertension Surgical History History of wisdom tooth extraction Family History Family History Father No problems noted. Mother No problems noted. Social History Social History Housing: House Patient Tobacco Use Status: Never used Tobacco Tobacco use type: Cigarette Smoked in Last 30 Days: No e-Cigarette/Vaping Use: Never Used Second Hand Smoke Exposure: No Use of substances other than those prescribed or required for medical reasons: No Advance Directives: No Advance Directives Information Provided: No Do you have a plan to hurt others: No Plan service: No Current occupational status: employed Cognitive needs: No Hearing needs: No Vision needs: Yes (glasses) Physical Exam ED Vital Signs: Vital Signs - 24 hr 06/15/24 09:33 06/15/24 09:55 06/15/24 10:00 Temperature 96.8 F Pulse Rate 92 112 H Respiratory Rate 24 H 24 H Blood Pressure 169/107 H Pulse Oximetry 88 L 78 L 98 Oxygen Delivery Method Room Air Nasal Cannula Non-Rebreather Mask Oxygen Flow Rate 3 15 06/15/24 10:02 06/15/24 10:08 06/15/24 10:15 Temperature 99.2 F Pulse Rate 111 H 108 H 111 H Respiratory Rate 28 H 20 16 Blood Pressure 173/135 H 179/99 H Pulse Oximetry 94 94 Oxygen Delivery Method Nasal Cannula Nasal Cannula Oxygen Flow Rate 2 2 06/15/24 10:21 06/15/24 10:27 06/15/24 11:31 Temperature 97.9 F Pulse Rate 120 H 124 H 115 H Respiratory Rate 18 16 16 Blood Pressure 143/117 H 144/90 H 160/90 H Pulse Oximetry 93 94 93 Oxygen Delivery Method Nasal Cannula Room Air Room Air Oxygen Flow Rate 2 BMI result Body Mass Index 51.1 vss Appearance: Alert.? Oriented X3.? No acute distress.? Head: Normocephalic, atraumatic, no step-offs or deformities Eyes: Pupils equal, round and reactive to light.? Throat: No edema noted however lower lip doesAppear edematous. Neck: Normal inspection.? Neck supple.? CVS: Normal heart rate and rhythm.? Pulses normal.? Respiratory: No respiratory distress.? Breath sounds normal.? Abdomen: Soft and nontender.? Skin: Skin warm and dry.? Normal skin color.? Normal skin turgor.? Extremities: No lower extremity edema.? No calf ttp. 5/5 strength to bilateral upper and lower extremities Neuro: Oriented X 3.? No motor deficit.? No sensory deficit. CN 2-12 intact Course Reevaluation(s) Reevaluation #1: Patient's meds were given Pepcid, Benadryl, Decadron and 0.4 of epi. Time: 09:43 Reevaluation #2: Patient necessitating 2nd dose of epinephrine, he saturating 78% on 3 L. He is now on a non-rebreather at 15 L, and transported to room 5 in case airway management is needed. Time: 10:00 Reevaluation #3: DuoNeb ordered and respiratory at bedside. Patient is saturating 93% on 2 L with nebulizing treatment. Angioedema was initially improving however seems to be worsening at this time, left eye swollen. Airway is still patent no swelling to airway. Time: 10:14 Additional Reevaluation(s): 1308 Patient feeling better, will do an ambulatory O2. I did have a long conversation with patient about discharge instructions he should follow-up with allergy and immunology. I told him to avoid aspirin and ibuprofen. Will send him home with EpiPen and proper use of EpiPen was explained to patient he will go home with instructions. Also advised him to speak to the pharmacist for further clarification of how to properly use an EpiPen. 1345 Patient's O2 sat 93-94% ambulating around department. Patient feeling much better. Tollerating pO. Will be discharged with strict return precautions. Educated patient on diagnosis and treatment plan, answered all question, patient verbalizes understanding. At this time patient will be discharged home, advised to return with new or worsening symptoms. Educated on worrisome signs and symptoms and when to return. At this time I feel comfortable discharge home. Medications Administered Discontinued Medications Generic Name Dose Route Start Last Admin Trade Name Aga PRN Reason Stop Dose Admin Albuterol Sulfate 7.5 mg/ 0 mg 06/15/24 10:02 06/15/24 10:08 Albuterol/Ipratropium 3 ml INHALE 06/15/24 10:03 10 each ONCE ONE Administration Dexamethasone Sodium Phosphate 10 mg 06/15/24 09:39 06/15/24 09:52 Dexamethasone Sod Phosphate 10 Mg/Ml Vial IVPUSH 06/15/24 09:40 10 mg ONCE ONE Administration Diphenhydramine HCl 50 mg 06/15/24 09:39 06/15/24 09:52 Diphenhydramine Hcl 50 Mg/Ml Vial IVPUSH 06/15/24 09:40 50 mg ONCE ONE Administration Famotidine 20 mg 06/15/24 09:39 06/15/24 09:52 Famotidine/Pf 20 Mg/2 Ml Vial IVPUSH 06/15/24 09:40 20 mg ONCE ONE Administration Critical Care Time Critical Care Time Critical Care Time: Yes Total Critical Care Time: 45 Attestation: I attest to this time spent taking care of the patient, obtaining history, physical, reviewing labs, imaging, treatment of patients condition +/- specialist/hospitalist consult Discharge Plan Discharge Clinical Impression: Anaphylaxis, Angioedema, Adverse reaction to drug Patient Disposition: Home, Self-Care Instructions: Food Allergy (ED), Angioedema (ED), General Allergic Reaction (ED) Additional Instructions: Take your medications as prescribed. If you were prescribed antibiotics today, it is important that you take your medication to their entirety, do not skip any doses, do not finish them early. Follow-up with your primary care provider this week. Return to the emergency department with new or worsening symptoms. Such as fevers, chills, chest pain, shortness of breath, nausea, vomiting, dizziness, headache, vision changes, lethargy In case of emergency call 911 Please avoid aspirin and ibuprofen. Do not take Excedrin again. Follow up with allergy doctor How to use an EpiPen: ? Place the orange tip against the middle of the outer thigh. ? Swing and push the auto-injector firmly into the thigh until it ?clicks? ? Hold firmly in place for three seconds?count slowly, ?1, 2, 3? An EpiPen has been sent to your pharmacy this should only be used in severe emergency such as inability to breathe trouble speaking, shortness breath or any signs of anaphylaxis as discussed. If he use an EpiPen it is crucial you come in to an emergency department to be evaluated as you can have a rebound effect. Please follow-up with an allergy doctor. Prescriptions: New famotidine [Pepcid] 20 mg tablet 20 mg PO DAILY 14 Days Qty: 14 0RF diphenhydramine HCl [Benadryl] 25 mg capsule 50 mg PO BID PRN (Reason: allergic reaction) Qty: 30 0RF prednisone 20 mg tablet 40 mg PO DAILY 5 Days Qty: 10 0RF epinephrine [EpiPen 2-Buddy] 0.3 mg/0.3 mL auto-injector 0.3 mg IM Q4H PRN (Reason: anaphylaxis) Qty: 2 0RF No Action metoprolol tartrate 100 mg tablet 100 mg PO BID Qty: 60 8RF albuterol sulfate 90 mcg/actuation HFA aerosol inhaler 2 puff inhalation Q4H PRN (Reason: shortness of breath or wheezing) 90 Days Qty: 8.5 12RF albuterol sulfate [Ventolin HFA] 90 mcg/actuation HFA aerosol inhaler 2 puff inhalation Q6H PRN (Reason: shortness of breath or wheezing) Qty: 8.5 4RF hydrochlorothiazide 25 mg tablet 25 mg PO DAILY Qty: 90 8RF Referrals: [facility] [Outside] - 2 days Omar Fajardo MD [Primary Care Provider] - 2 days Stand Alone Forms: Work/School Release Print Language: Occitan
--- NOTE | 2024-06-15 10:17 | PC.NURSE ---
pt continues to maintain patent airway s/p medication administration by previous RN. pt remains on 2L via NC receiving breathing treatment via RT. pt tolerating well. pt displays w/ no sob/wob. respirations even/unlabored. on 95% at this time. decreased facial swelling noted. swelling more notable to left eye. provider aware of all findings. plan of care ongoing.
--- NOTE | 2024-06-15 10:21 | PC.NURSE ---
pt completed breathing treatment via RT. pt resting on 2L via NC w/o difficulty. pt sitting upright to promote patent airway. no sob/wob noted. respirations even/unlabored. plan of care ongoing.
--- NOTE | 2024-06-15 10:32 | PC.NURSE ---
pt now on RA w/o difficulty. SPO2 @ 94%. airway remains patent. pt managing secretions well w/o difficulty. no sob/wob noted. respirations remain even/unlabored. plan of care ongoing.
--- NOTE | 2024-06-15 13:57 | PC.NURSE ---
ambulatory O2 trial performed - pt tolerated well on RA. no difficulties noted. no sob/wob noted. findings reported to provider.
== END 2024-06-15 14:22 | disposition home or self-care (01) ==
PROVIDERS: Emergency Provider Emergency Medicine; PCP Internal Medicine
DX: T78.3XXA Angioneurotic edema, initial encounter (principal); T88.6XXA Anaphylactic reaction due to adverse effect of correct drug or medicament properly administered, initial encounter; T43.615A Adverse effect of caffeine, initial encounter; Y92.9 Unspecified place or not applicable
CPT/HCPCS: 94640; 96374; 96375; 99285; J1100; J1200

== ENCOUNTER 2024-08-27 11:01 | Outpatient (AMB) | payer BC, SELFPAY ==
--- NOTE | 2024-08-27 11:05 | MHC.PC.OV ---
Vital Signs 08/27/24 11:06 Height 5 ft 6 in Weight 328 lb BMI 52.9 BP 148/112 H Blood Pressure Location Lt brachial Position Sitting Pulse 98 Pulse Source Pulse Oximeter Pulse Oximetry (%) 97 Oxygen Delivery Method Room Air Intake Visit Reasons: 3mth f/u Intake Note: Patient here for a 3 month follow up, requesting interior decorator referral Help Desk Technician Required: No Accompanied by: Self / Same As Patient Allergies ibuprofen [Advil] Allergy (Unknown, Verified 08/27/24 11:08) hives Tobacco use date assessed: 08/27/24 Dental Screening Dental Screen Date: 08/27/24 Did you have a dental visit in the last 12 months?: Yes Did you have a dental problem in the last 6 months where you did not have access to dental care?: No Was dental information given to patient?: Patient has dentist HPI 3mth f/u HPI Details HTN on Rx; compliant; needs to lose weight and exercise more PFSH Medical History Morbid obesity Hypertension Surgical History History of wisdom tooth extraction Family History Father No problems noted. Mother No problems noted. Social History Housing: House Patient Tobacco Use Status: Never used Tobacco Tobacco use type: Cigarette e-Cigarette/Vaping Use: Never Used Second Hand Smoke Exposure: No service: No Current occupational status: employed Cognitive needs: No Hearing needs: No Vision needs: Yes (glasses) Questionnaire PHQ-9 Over the last 2 weeks, how often have you been bothered by any of the following problems? 1. Little interest or pleasure in doing things: not at all 2. Feeling down, depressed, or hopeless: not at all 3. Trouble falling or staying asleep, or sleeping too much: not at all 4. Feeling tired or having little energy: not at all 5. Poor appetite or overeating: not at all 6. Feeling bad about yourself - or that you are a failure or have let yourself or your family down: not at all 7. Trouble concentrating on things, such as reading the newspaper or watching television: not at all 8. Moving or speaking so slowly that other people could have noticed. Or the opposite - being so fidgety or restless that you have been moving around a lot more than usual: not at all 9. Thoughts that you would be better off or of hurting yourself in some way: not at all Total score: 0 Depression Screening Interpretation: Negative Depression Screening Done: Yes 67877 - PHQ-9 Billing: Yes Source: Developed by Drs. Grzegorz Barragan, Judi Calvillo, Kb Baker and colleagues, with an educational leticia from [employer] Thrive Questionnaire Date Thrive assessed: 08/27/24 I am a: Patient What is your living situation today?: I have a steady place to live Within the past 12 months, did the food you bought not last and you didn't have the money to get more?: Never true Within the past 12 months, did you worry whether your food would run out before you got money to buy more?: Never true Do you have trouble paying for medicines?: No Do you have trouble getting transportation to medical appointments?: No Do you have trouble paying your heating and electricity bill?: No Do you have trouble taking care of your child, family member or friend?: No Do you have trouble with day-to-day activities such as bathing, preparing meals, shopping, managing finances, etc.?: No Are you currently unemployed and looking for a job?: No Are you interested in more education?: No Please select the resources that you would like help with: None Currently or been in a relationship where the following occur: No concerns reported THRIVE Score: 0 AUDIT C Alcohol Use Questionnaire (AUDIT-C) 1. How often do you have a drink containing alcohol?: 2-4 times a month 2. How many drinks containing alcohol do you have on a typical day when you are drinking?: 5 or 6 3. How often do you have six or more drinks on one occasion?: Monthly Total Score: 6 MO-7 AMB Questionnaire MO-7 Date MO - 7 assessed: 08/27/24 Feeling nervous, anxious, or on edge: 0 = Not at all Not being able to stop or control worryin = Not at all Worrying too much about different things: 0 = Not at all Trouble relaxin = Not at all Being so restless that it is hard to sit still: 0 = Not at all Becoming easily annoyed or irritable: 0 = Not at all Feeling afraid as if something awful might happen: 0 = Not at all Total MO-7 score (0-4 normal; 5-9 mild; 10-14 moderate; 15-21 severe): 0 Source: Developed by Drs. Grzegorz Barragan, Judi Calvillo, Kb Baker and colleagues, with an educational leticia from [employer] Review of Systems Const Denies chills, Denies headache(s) and Denies weight loss ENT Denies headache(s) Card Denies chest pain, Denies syncope, Denies irregular heart rhythm and Denies dyspnea Resp Denies chest congestion, Denies cough and Denies dyspnea GI Denies abdominal pain, Denies change in stool character, Denies nausea and Denies vomiting Musc Denies deformity and Denies joint swelling Neuro Denies syncope and Denies headache(s) Physical exam (Primary Care) Vital Signs: Last Vital Signs Pulse 98 08/27/24 11:06 BP 148/112 H 08/27/24 11:06 Pulse Ox 97 08/27/24 11:06 Oxygen Delivery Method Room Air 08/27/24 11:06 BMI result Body Mass Index 52.9 Tobacco/Smoking Status: Tobacco use Status Tobacco use date assessed 08/27/24 08/27/24 11:11 Patient Tobacco Use Status Never used Tobacco 08/27/24 11:11 Tobacco use type Cigarette 08/27/24 11:11 e-Cigarette/Vaping Use Never Used 08/27/24 11:11 PHQ-9: PHQ-9 Score PHQ-9: Total score 0 08/27/24 11:11 Depression Screening Interpretation: Negative Thrive Assessment: Date of Thrive Assessment Date Thrive assessed 08/27/24 08/27/24 11:11 Currently or been in a relationship where the following occur: No concerns reported Const General: cooperative, comfortable, no acute distress and alert Neck Neck: Yes no lymphadenopathy Thyroid: Thyroid normal Resp Effort & Inspection: normal respiratory effort Auscultation: clear to auscultation bilaterally Percussion: percussion normal Cardio Jugular venous distension: no JVD Palpation: normal PMI Rate: regular rate Rhythm: regular rhythm Heart sounds: S1 normal heart sound present and S2 normal heart sound present GI Inspection: Yes normal to inspection Palpation (GI): No hepatosplenomegaly present Skin General skin exam: no rashes or lesions noted Extrem General: Yes no clubbing, cyanosis or edema Coding Level of Care Code Est Pt Level 3 (15671) Diagnoses Hypertension I10 Additional Codes PHQ-9 - 72447 - PHQ-9 Billing: Yes ([id number]) Assessment & Plan Assessment & Plan (1) Hypertension: Code(s): I10 - Essential (primary) hypertension Category: Medical Plan: if weight loss is unsuccessful will need increased rx
[2024-08-27 11:06] VITALS: BP 148/112; PULSE 98; O2SAT 97; BMI 52.9
== END 2024-08-27 11:37 | disposition home or self-care (01) ==
PROVIDERS: PCP Internal Medicine; Visit Provider Internal Medicine
DX: I10 Essential (primary) hypertension (principal)

== ENCOUNTER → 2024-08-27 11:01 | Outpatient (BNVA) | payer BC, SELFPAY | PROVIDERS: PCP Internal Medicine; Visit Provider Internal Medicine | DX: I10 Essential (primary) hypertension (principal) | CPT/HCPCS: 96127 ==

== ENCOUNTER 2024-12-02 15:58 | Outpatient (AMB) | payer BC, SELFPAY ==
--- NOTE | 2024-12-02 16:07 | A.OFFPC_ITS ---
Vital Signs 12/02/24 16:08 12/02/24 16:15 Height 5 ft 6 in Weight 319 lb BMI 51.5 BP 144/110 H 146/98 H Blood Pressure Location Lt brachial Lt brachial Position Sitting Sitting Pulse 68 Pulse Source Pulse Oximeter Temp 97.6 F Temp Source Oral Pulse Oximetry (%) 96 Oxygen Delivery Method Room Air Intake Visit Reasons: Transfer From [facility] f/ Alternative Medicine Practitioner Required: No Accompanied by: Self / Same As Patient Allergies ibuprofen [Advil] Allergy (Unknown, Verified 12/02/24 16:16) hives Medication List - Last Reconciled 12/02/24 by WEN Kilpatrick albuterol sulfate 90 mcg/actuation (Ventolin HFA) 2 puffs inhalation Q6H PRN diphenhydramine HCl (Benadryl) 50 mg (2 x 25 mg) PO BID PRN epinephrine (EpiPen 2-Buddy) 0.3 mg (0.3 mL) IM Q4H PRN hydrochlorothiazide 25 mg PO DAILY metoprolol tartrate 100 mg PO BID Tobacco use date assessed: 08/27/24 Dental Screening Dental Screen Date: 08/27/24 HPI Transfer From [address] f/ HPI Details The patient is a 44-year-old male presenting with To be transitioned care from Dr. Fajardo who retired. Past medical history significant for elevated blood pressure and cholesterol. Despite adherence to medication and lifestyle modifications including exercise, essential hypertension persists. Elevated cholesterol levels have been noted with concern for long-term cardiovascular implications. Family history includes both parental hypertension and diabetes, managed well, alongside a maternal history of colorectal cancer. The patient experiences asthma with primary symptoms being seasonal exacerbations. Management has included bronchodilators, with additional therapy proposed to manage associated allergic rhinitis symptoms. Reports of snoring raise a concern for obstructive sleep apnea, with a home sleep study proposed for further evaluation. [facility] Medical History (Updated 12/04/24 @ 08:46 by WEN Kilpatrick) Uncontrolled hypertension Morbid obesity Hypertension Surgical History History of wisdom tooth extraction Family History Father No problems noted. Mother No problems noted. Social History Housing: House Patient Tobacco Use Status: Never used Tobacco e-Cigarette/Vaping Use: Never Used Second Hand Smoke Exposure: No service: No Current occupational status: employed Current occupational exposures/hazards: No Cognitive needs: No Hearing needs: No Vision needs: Yes (glasses) Questionnaire PHQ-9 Over the last 2 weeks, how often have you been bothered by any of the following problems? 1. Little interest or pleasure in doing things: not at all 2. Feeling down, depressed, or hopeless: not at all 3. Trouble falling or staying asleep, or sleeping too much: not at all 4. Feeling tired or having little energy: not at all 5. Poor appetite or overeating: not at all 6. Feeling bad about yourself - or that you are a failure or have let yourself or your family down: not at all 7. Trouble concentrating on things, such as reading the newspaper or watching television: not at all 8. Moving or speaking so slowly that other people could have noticed. Or the o pposite - being so fidgety or restless that you have been moving around a lot more than usual: not at all 9. Thoughts that you would be better off or of hurting yourself in some way: not at all Total score: 0 Source: Developed by Drs. Grzegorz Barragan, Judi Calvillo, Kb Baker and colleagues, with an educational leticia from [employer]. Thrive Questionnaire Date Thrive assessed: 12/02/24 I am a: Patient What is your living situation today?: I have a steady place to live Within the past 12 months, did the food you bought not last and you didn't have the money to get more?: Never true Within the past 12 months, did you worry whether your food would run out before you got money to buy more?: Never true Do you have trouble paying for medicines?: No Do you have trouble getting transportation to medical appointments?: No Do you have trouble paying your heating and electricity bill?: No Do you have trouble taking care of your child, family member or friend?: No Do you have trouble with day-to-day activities such as bathing, preparing meals, shopping, managing finances, etc.?: No Are you currently unemployed and looking for a job?: No Are you interested in more education?: No Please select the resources that you would like help with: None Currently or been in a relationship where the following occur: No concerns reported THRIVE Score: 0 AUDIT C Alcohol Use Questionnaire (AUDIT-C) 1. How often do you have a drink containing alcohol?: 2-4 times a month 2. How many drinks containing alcohol do you have on a typical day when you are drinking?: 3 or 4 3. How often do you have six or more drinks on one occasion?: Less than monthly Total Score: 4 MO-7 AMB Questionnaire MO-7 Date MO - 7 assessed: 08/27/24 Feeling nervous, anxious, or on edge: 0 = Not at all Not being able to stop or control worryin = Not at all Worrying too much about different things: 0 = Not at all Trouble relaxin = Not at all Being so restless that it is hard to sit still: 0 = Not at all Becoming easily annoyed or irritable: 0 = Not at all Feeling afraid as if something awful might happen: 0 = Not at all Total MO-7 score (0-4 normal; 5-9 mild; 10-14 moderate; 15-21 severe): 0 Source: Developed by Drs. Grzegorz Barragan, Judi Calvillo, Kb Baker and colleagues, with an educational leticia from [employer]. Review of Systems Const Details: - Cardiovascular: Denies chest pain or palpitations - Respiratory: Reports asthma and allergy-related symptoms; denies shortness of breath unless related to asthma - Neurological: Denies dizziness or headaches - Sleep: Reports snoring with family confirmation; denies waking up tired Denies headache(s) and Reports snoring Eyes Denies loss of vision ENT Denies vertigo, Denies dizziness, Denies headache(s) and Denies sore throat Card Denies chest pain, Denies leg edema, Denies lightheadedness and Reports dyspnea (Only went having asthma symptoms) Resp Denies cough, Denies hemoptysis, Reports dyspnea (Only went having asthma symptoms), Reports snoring and Denies wheezing GI Denies abdominal pain, Denies melena, Denies constipation, Denies diarrhea and Denies vomiting Denies dysuria, Denies urinary frequency and Denies urinary urgency Musc Denies arthralgias, Denies joint swelling, Denies numbness and Denies tingling Neuro Denies Abnormal speech present, Denies behavioral changes, Denies vertigo, Denies dizziness, Denies headache(s), Denies loss of vision, Denies memory loss, Denies numbness and Denies tingling Psych Denies anxiety, Denies behavioral changes, Denies depression, Denies memory loss and Denies panic attacks Jonathan/Lymph Denies easy bleeding and Denies easy bruising Aller/Immun Denies wheezing Physical exam (Primary Care) Vital Signs: Last Vital Signs Temp 97.6 F 12/02/24 16:08 Pulse 68 12/02/24 16:08 BP 144/110 H 12/02/24 16:08 Pulse Ox 96 12/02/24 16:08 Oxygen Delivery Method Room Air 12/02/24 16:08 BMI result Body Mass Index 51.5 Tobacco/Smoking Status: Tobacco use Status Tobacco use date assessed 08/27/24 12/02/24 16:15 Patient Tobacco Use Status Never used Tobacco 12/02/24 16:15 Tobacco use type 12/02/24 16:15 e-Cigarette/Vaping Use Never Used 12/02/24 16:15 PHQ-9: PHQ-9 Score PHQ-9: Total score 0 12/02/24 16:38 Thrive Assessment: Date of Thrive Assessment Date Thrive assessed 12/02/24 12/02/24 16:15 Currently or been in a relationship where the following occur: No concerns reported Const General: healthy appearing, no acute distress, alert and awake Nutritional Appearance: obese morbidly obese Orientation/consciousness: oriented to person, oriented to place and oriented to time [facility] Ears: TM's normal bilaterally General nose exam: Normal nasal mucous membranes and turbinates present Eyes Conjunctivae: conjunctivae normal Sclerae: sclerae normal Pupils: Equal, round and reactive pupils present Neck Neck: Yes no lymphadenopathy and Yes no JVD Thyroid: Thyroid normal Carotids: no bruits Resp Effort & Inspection: normal respiratory effort and not tachypneic Auscultation: no crackles, no rales, no rhonchi and no wheezes Cardio Rate: regular rate Rhythm: regular rhythm Heart sounds: no murmurs and normal S1 and S2 GI Palpation (GI): Soft to palpation, nontender, no hepatomegaly and no splenomegaly Auscultation: normal bowel sounds Skin General skin exam: no rashes or lesions noted and dry skin Neuro General: oriented to person, oriented to place and oriented to time Cranial nerves: Yes Equal, round and reactive pupils present Speech: No Abnormal speech present Gait exam (Neuro): Normal gait present Motor exam (neuro): no tremor noted Extrem Right upper extremity: full ROM Left upper extremity: full ROM Right lower extremity: full ROM; no edema Left lower extremity: full ROM; no edema Psych Mental Status: mental status grossly normal Speech and movement: Normal speech and movement present Affect: normal affect Attitude: cooperative Thought process: Normal thought process present Coding Level of Care Code Est Pt Level 4 (95742) Diagnoses Hypertension, unspecified type I10 Hypertension type: unspecified Morbid obesity E66.01 Mild intermittent asthma without complication J45.20 Asthma severity: mild Asthma persistence: intermittent Asthma complication type: uncomplicated Mixed hypercholesterolemia and hypertriglyceridemia E78.2 Seasonal allergic rhinitis due to pollen J30.1 Allergic rhinitis trigger: pollen Allergic rhinitis seasonality: seasonal Time Spent (min) 39 Assessment & Plan Assessment & Plan (1) Hypertension: Code(s): I10 - Essential (primary) hypertension Category: Medical Qualifiers: Hypertension type: unspecified Qualified Code(s): I10 - Essential (primary) hypertension (2) Morbid obesity: Code(s): E66.01 - Morbid (severe) obesity due to excess calories Category: Medical (3) Asthma: Code(s): J45.909 - Unspecified asthma, uncomplicated Category: Medical Qualifiers: Asthma severity: mild Asthma persistence: intermittent Asthma complication type: uncomplicated Qualified Code(s): J45.20 - Mild intermittent asthma, uncomplicated (4) Mixed hypercholesterolemia and hypertriglyceridemia: Code(s): E78.2 - Mixed hyperlipidemia Category: Medical (5) Allergic rhinitis: Code(s): J30.9 - Allergic rhinitis, unspecified Category: Medical Qualifiers: Allergic rhinitis trigger: pollen Allergic rhinitis seasonality: seasonal Qualified Code(s): J30.1 - Allergic rhinitis due to pollen Plan To manage persistent hypertension, an additional calcium channel radhames, amlodipine, was prescribed. I will reevaluate cholesterol levels post lifestyle improvements before considering medication changes. For asthma and related allergies, we discussed the possible utility of Flonase nasal spray. Given the suspicion of obstructive sleep apnea, a home study is planned. I emphasized behavioral modifications, including improved hydration and careful monitoring of salt intake. Follow-up in four weeks is essential to review treatment effectiveness and determine necessary adjustments. Patient was informed and verbally consented to the use of an ambient scribe for clinic note documentation during this visit. Orders: Orders Comprehensive [place]. Panel Fast 12/02/24 E66. - Morbid (severe) obesity due to excess calories, E78.2 - Mixed hyperlipidemia, I10 - Essential (primary) hypertension, J45.909 - Unspecified asthma, uncomplicated Lipid Panel 12/02/24 E66.01 - Morbid (severe) obesity due to excess calories, E78.2 - Mixed hyperlipidemia, I10 - Essential (primary) hypertension, J45.909 - Unspecified asthma, uncomplicated TSH reflex Free T4 12/02/24 E6. - Morbid (severe) obesity due to excess calories, E78.2 - Mixed hyperlipidemia, I10 - Essential (primary) hypertension, J45.909 - Unspecified asthma, uncomplicated Vitamin D 25-OH Total 12/02/24 E66.01 - Morbid (severe) obesity due to excess calories, E78.2 - Mixed hyperlipidemia, I10 - Essential (primary) hypertension, J45.909 - Unspecified asthma, uncomplicated Complete Blood Count Auto Diff 12/02/24 E66. - Morbid (severe) obesity due to excess calories, E78.2 - Mixed hyperlipidemia, I10 - Essential (primary) hypertension, J45.909 - Unspecified asthma, uncomplicated UA CC w/rflx Micro + Cult 12/02/246. - Morbid (severe) obesity due to excess calories, E78.2 - Mixed hyperlipidemia, I10 - Essential (primary) hypertension, J45.909 - Unspecified asthma, uncomplicated Glucose Fasting 12/02/24 E66.01 - Morbid (severe) obesity due to excess calories, E78.2 - Mixed hyperlipidemia, I10 - Essential (primary) hypertension, J45.909 - Unspecified asthma, uncomplicated Microalbumin, Random (w Creat) 12/02/24 E66.01 - Morbid (severe) obesity due to excess calories, E78.2 - Mixed hyperlipidemia, I10 - Essential (primary) hypertension, J45.909 - Unspecified asthma, uncomplicated RT home sleep study 12/02/24 E66.01 - Morbid (severe) obesity due to excess calories, I10 - Essential (primary) hypertension, R06.83 - Snoring Medications: New fluticasone propionate 50 mcg/actuation administer into each nostril 1 spray intranasal BID 16 grams 0RF amlodipine 5 mg PO DAILY 30 tabs 2RF I10 - Essential (primary) hypertension Patient Instructions: - Take prescribed medications as directed, including the new amlodipine - Increase fluid intake to stay well-hydrated - Consider using Flonase for nasal congestion if regular Claritin is insufficient - Follow up on home sleep study arrangement - Continue regular exercise and watch for high salt intake in food - Return in four weeks for follow-up and bring any home blood pressure readings
[2024-12-02 16:08] VITALS: BP 144/110; PULSE 68; TEMP 36.4; O2SAT 96; BMI 51.5
[2024-12-02 16:15] VITALS: BP 146/98
== END 2024-12-02 16:47 | disposition home or self-care (01) ==
LOC: HO.HMCH 15:59
DX: I10 Essential (primary) hypertension (principal); E66.01 Morbid (severe) obesity due to excess calories; Z68.43 Body mass index [BMI] 50.0-59.9, adult; J45.20 Mild intermittent asthma, uncomplicated; E78.2 Mixed hyperlipidemia; J30.1 Allergic rhinitis due to pollen

== ENCOUNTER → 2025-02-12 14:43 | Outpatient (REF) | payer BC, SELFPAY | LOC: HO.SL 14:43 | DX: G47.33 Obstructive sleep apnea (adult) (pediatric) (principal); I10 Essential (primary) hypertension; E66.01 Morbid (severe) obesity due to excess calories; R06.83 Snoring | CPT/HCPCS: 95806 ==

== ENCOUNTER → 2025-02-12 14:52 | Outpatient (BNV) | payer BC, SELFPAY | PROVIDERS: Visit Provider Internal Medicine | DX: G47.33 Obstructive sleep apnea (adult) (pediatric) (principal) | CPT/HCPCS: 95806 ==

== ENCOUNTER 2025-03-06 06:29 | Outpatient (REF) | payer BC, SELFPAY ==
--- OUTSIDE RECORDS SUMMARY | 2025-03-06 06:32 | XMS_ITS | Clinical Summary ---
Author Organization [facility] Address [address] [place] [address] Phone Care Team Providers Care Ship Runner Name Role Phone Omar Fajardo MD Primary Care Provider [phone] Allergies Active Allergy Reactions Criticality Noted Date Comments Ibuprofen 12/07/2021 Medications metoprolol tartrate (LOPRESSOR) 25 MG tablet Take 25 mg by mouth 2 (two) times a day. 2 Active albuterol 90 mcg/actuation inhaler INHALE 2 PUFFS BY MOUTH EVERY 4 HOURS NEEDED FOR SHORTNESS OF BREATH OR WHEEZING 2 Active Active Problems No known active problems Social History Tobacco Use Types Packs/Day Years Used Date Smoking Tobacco: Never Smokeless Tobacco: Never Alcohol Use Standard Drinks/Week Comments Yes 0 (1 standard drink = 0.6 oz pur e alcohol) Education Answer Date Recorded Are you interested in more education? Not on jenna e 12/02/2022 Are you concerned about learning? Not on file 12/02/2022 No 12/02/2022 No 12/02/2022 Digital Access Answer Date Recorded No 12/30/2022 No 12/30/2022 No 12/30/2022 Reliable internet access at home? Not on file 12/30/2022 Device with a working camera? Not on file Sex and Gender Information Value Date Recorded Sex Assigned at Not on file Legal Sex Male 9:22 PM EDT Gender Identity Not on file Sexual Orientation Not on file Last Filed Vital Signs Vital Sign Reading Time Taken Comments Blood Pressure - - Pulse 82 12/07/2021 9:37 AM EDT Temperature - - Respiratory Rate 16 12/07/2021 9:37 AM EDT Oxygen Saturation 97% 12/07/2021 9:37 AM EDT Inhaled Oxygen Concentration - - Weight 145.2 kg (320 lb) 12/07/2021 9:37 AM EDT Height 170.2 cm (5' 7 ) 12/07/2021 9:37 AM EDT Body Mass Index 50.12 12/07/2021 9:37 AM EDT Plan of Treatment Health Maintenance Due Date Last Done Comments Adult Td,Tdap Booster 1980 LIPID PANEL 1980 DEPRESSION SCREENING 1992 HEPATITIS C SCREENING 1998 HIV ONE-TIME SCREENING (18-6 5 YEARS) 1998 COVID-19 VACCINE (2023-2 5 season) 2024 06/01/2021, 09/14/2020, 08/17/2020 SMOKING STATUS SCREENING (On ce After 26 Yrs) Completed 12/07/2021 HEPATITIS A VACCINES Aged Out No long er eligible based on patient's age to complete this topic HIB VACCINES Aged Out No longer eligi ble based on patient's age to complete this topic MENINGOCOCCAL VACCINES (ACWY) Aged Out No longer eligible based on patient's age to complete this topic MENINGOCOCCAL VACCINES (B) Aged Out N o longer eligible based on patient's age to complete this topic PNEUMOCOCCAL VACCINES (0-49 years) Aged Out No longer eligible b ased on patient's age to complete this topic Medical Devices Not on file Insurance [facility] [place] [address] [place] [address] [place] [address] [place] [address] HMO POS [facility] POS [facility] HMO POS [facility] HMO POS [facility] HMO POS Care Teams Ship Runner Relationship Specialty Start Date End Date Omar Fajardo MD [address] [place] [address] [place] [address] PCP - General 12/07/21 Additional Source Comments The information contained in this document represents components of the legal health record. It is not the complete legal health record.[facility]
[2025-03-06 06:48] LABS: MANUAL DIFF FLAG NO
[2025-03-06 07:13] LABS: Hematocrit 42.3 % (42.0-52.0); Hemoglobin 14.0 g/dl (14.0-18.0); Imm Gran Abs Auto 0.06 X10*3/uL (0.00-0.03); Imm Gran Pct Auto 0.6 % (0.0-0.4); Lymphocytes Absolute Auto 1.8 X10*3/uL (1.2-4.9); Mean Corpuscular HGB Conc 33.1 g/dl (31.0-36.0); Mean Corpuscular Hemoglobin 27.8 pg (27.0-33.0); Mean Corpuscular Volume 84.1 fL (80.0-98.0); NRBC Abs Auto 0.000 X10*3/uL (0.0-0.012); NRBC Pct Auto 0.0 /100WBC (0.0-0.2); Platelet Count 312 X10*3/uL (160-400); Red Blood Count 5.03 X10*6/uL (4.60-5.80); White Blood Count 9.7 X10*3/uL (4.8-10.8)
[2025-03-06 07:20] LABS: Alanine Aminotransferase 30 U/L (0-40); Albumin Level 4.6 g/dL (3.5-5.0); Alkaline Phosphatase 62 U/L (39-117); Anion Gap 14 (12-20); Aspartate Amino Transferase 28 U/L (5-37); Blood Urea Nitrogen 17 mg/dL (9-16); Calcium 9.1 mg/dL (8.4-10.2); Carbon Dioxide 26 mmol/L (22-29); Chloride 107 mmol/L (96-108); Cholesterol 197 mg/dL (<200); Estimated Glomerular Filt Rate > 60; HDL Cholesterol 40 mg/dL (>40); Potassium 3.7 mmol/L (3.3-5.1); Sodium 143 mmol/L (135-145); Total Protein 7.6 g/dL (6.5-8.0); Triglycerides 166 mg/dL (<150)
[2025-03-06 07:51] LABS: Appearance Urine Clear; Glucose Urine UA Negative (Negative); PH 5.5 (5.0-9.0); Specific Gravity - Urine >= 1.030 (1.005-1.025)
[2025-03-06 08:31] LABS: Microalbum/Creatinine Ratio Ur 4.8 ug/mg cr (<30)
== END 2025-03-06 06:30 | disposition home or self-care (01) ==
LOC: HO.LAB 06:29
DX: I10 Essential (primary) hypertension (principal); E66.01 Morbid (severe) obesity due to excess calories; E78.2 Mixed hyperlipidemia; J45.909 Unspecified asthma, uncomplicated
CPT/HCPCS: 36415; 80053; 80061; 81003; 82043; 82306; 82570; 84443; 85025

== ENCOUNTER 2025-03-07 15:07 | Outpatient (AMB) | payer BC, SELFPAY ==
[2025-03-07 15:10] VITALS: BP 140/86; PULSE 69; RESP 18; TEMP 36.4; O2SAT 95; BMI 52.7
--- NOTE | 2025-03-07 15:10 | MHC.PC.OV ---
Vital Signs 03/07/25 15:10 Height 5 ft 6 in Weight 326 lb 8 oz BMI 52.7 BP 140/86 H Blood Pressure Location Lt brachial Position Sitting Respiration 18 Pulse 69 Pulse Source Pulse Oximeter Temp 97.5 F Temp Source Temporal Artery Scan Pulse Oximetry (%) 95 Oxygen Delivery Method Room Air Intake Visit Reasons: uncontrolled bp-new tx Security Site Supervisor Required: No Accompanied by: Self / Same As Patient Allergies ibuprofen (Advil) Allergy (Unknown, Verified 12/02/24 16:16) hives Medication List - Last Reconciled 03/07/25 by WEN Kilpatrick albuterol sulfate 90 mcg/actuation (Ventolin HFA) 2 puffs inhalation Q6H PRN amlodipine 10 mg PO DAILY diphenhydramine HCl (Benadryl) 50 mg (2 x 25 mg) PO BID PRN epinephrine (EpiPen 2-Buddy) 0.3 mg (0.3 mL) IM Q4H PRN fluticasone propionate 50 mcg/actuation 1 spray intranasal BID hydrochlorothiazide 25 mg PO DAILY metoprolol tartrate 100 mg PO BID Tobacco use date assessed: 03/07/25 Dental Screening Dental Screen Date: 03/07/25 Did you have a dental visit in the last 12 months?: Yes Did you have a dental problem in the last 6 months where you did not have access to dental care?: No Was dental information given to patient?: Patient has dentist HPI uncontrolled bp-new tx HPI Details The patient is a 44-year-old male presenting with hypertension and sleep apnea. He reports discomfort with the home sleep study due to the nasal apparatus, and the results indicated severe sleep apnea, necessitating an in-lab study for further evaluation. Blood pressure readings have been inconsistent, with recent values of 140/86 mmHg, 135/90 mmHg, and 145/80 mmHg. The patient is on amlodipine 5 mg with reported side effects, and denies chest pain and dyspnea, increased amlodipine to 10 mg daily. The patient has hyperlipidemia, with LDL levels decreased from 142 mg/dL to 124 mg/dL, HDL level at 40, and is advised to take omega-3 supplements to enhance HDL levels and continue decreasing foods that are high cholesterol. Lab results show slightly elevated blood glucose, suggesting reduced sugar intake, and dehydration, indicated by BUN levels, prompting increased water consumption. Trace proteinuria was noted, with plans for re-evaluation to exclude renal pathology. [facility] Medical History Uncontrolled hypertension Morbid obesity Hypertension Surgical History History of wisdom tooth extraction Family History Father No problems noted. Mother No problems noted. Social History Housing: House Patient Tobacco Use Status: Refuse Tobacco use screen e-Cigarette/Vaping Use: Never Used Second Hand Smoke Exposure: No service: No Current occupational status: employed Current occupational exposures/hazards: No Cognitive needs: No Hearing needs: No Vision needs: Yes (glasses) Questionnaire PHQ-9 Over the last 2 weeks, how often have you been bothered by any of the following problems? 1. Little interest or pleasure in doing things: not at all 2. Feeling down, depressed, or hopeless: not at all 3. Trouble falling or staying asleep, or sleeping too much: not at all 4. Feeling tired or having little energy: not at all 5. Poor appetite or overeating: not at all 6. Feeling bad about yourself - or that you are a failure or have let yourself or your family down: not at all 7. Trouble concentrating on things, such as reading the newspaper or watching television: not at all 8. Moving or speaking so slowly that other people could have noticed. Or the opposite - being so fidgety or restless that you have been moving around a lot more than usual: not at all 9. Thoughts that you would be better off or of hurting yourself in some way: not at all Total score: 0 Source: Developed by Drs. Grzegorz Barragan, Judi Calvillo, Kb Baker and colleagues, with an educational leticia from [employer]. Thrive Questionnaire Date Thrive assessed: 03/07/25 I am a: Patient What is your living situation today?: I have a steady place to live Within the past 12 months, did the food you bought not last and you didn't have the money to get more?: Never true Within the past 12 months, did you worry whether your food would run out before you got money to buy more?: Never true Do you have trouble paying for medicines?: No Do you have trouble getting transportation to medical appointments?: No Do you have trouble paying your heating and electricity bill?: No Do you have trouble taking care of your child, family member or friend?: No Do you have trouble with day-to-day activities such as bathing, preparing meals, shopping, managing finances, etc.?: No Are you currently unemployed and looking for a job?: No Are you interested in more education?: No Please select the resources that you would like help with: None Currently or been in a relationship where the following occur: No concerns reported THRIVE Score: 0 AUDIT C Alcohol Use Questionnaire (AUDIT-C) 1. How often do you have a drink containing alcohol?: 2-4 times a month 2. How many drinks containing alcohol do you have on a typical day when you are drinking?: 3 or 4 3. How often do you have six or more drinks on one occasion?: Less than monthly Total Score: 4 MO-7 AMB Questionnaire MO-7 Date MO - 7 assessed: 03/07/25 Feeling nervous, anxious, or on edge: 0 = Not at all Not being able to stop or control worryin = Not at all Worrying too much about different things: 0 = Not at all Trouble relaxin = Not at all Being so restless that it is hard to sit still: 0 = Not at all Becoming easily annoyed or irritable: 0 = Not at all Feeling afraid as if something awful might happen: 0 = Not at all Total MO-7 score (0-4 normal; 5-9 mild; 10-14 moderate; 15-21 severe): 0 Source: Developed by Drs. Grzegorz Barragan, Judi Calvillo, Kb Baker and colleagues, with an educational leticia from [employer]. Review of Systems Const Reports daytime sleepiness, Reports difficulty sleeping, Denies headache(s) and Reports snoring Eyes Denies loss of vision ENT Denies vertigo, Denies dizziness, Denies headache(s) and Denies sore throat Card Denies chest pain, Denies leg edema and Denies lightheadedness Resp Denies cough, Denies hemoptysis, Reports snoring and Denies wheezing GI Denies abdominal pain, Denies melena, Denies constipation, Denies diarrhea and Denies vomiting Denies dysuria, Denies urinary frequency and Denies urinary urgency Musc Denies arthralgias, Denies joint swelling, Denies numbness and Denies tingling Neuro Denies Abnormal speech present, Denies behavioral changes, Denies vertigo, Denies dizziness, Denies headache(s), Denies loss of vision, Denies memory loss, Denies numbness and Denies tingling Psych Denies anxiety, Denies behavioral changes, Denies depression, Denies memory loss and Denies panic attacks Jonathan/Lymph Denies easy bleeding and Denies easy bruising Aller/Immun Denies wheezing Physical exam (Primary Care) Vital Signs: Last Vital Signs Temp 97.5 F 03/07/25 15:10 Pulse 69 03/07/25 15:10 Resp 18 03/07/25 15:10 BP 140/86 H 03/07/25 15:10 Pulse Ox 95 03/07/25 15:10 Oxygen Delivery Method Room Air 03/07/25 15:10 BMI result Body Mass Index 52.7 Tobacco/Smoking Status: Tobacco use Status Tobacco use date assessed 03/07/25 03/07/25 15:20 Patient Tobacco Use Status Refuse Tobacco use screen 03/07/25 15:34 Tobacco use type 12/02/24 16:46 e-Cigarette/Vaping Use Never Used 03/07/25 15:20 PHQ-9: PHQ-9 Score PHQ-9: Total score 0 03/07/25 15:34 Thrive Assessment: Date of Thrive Assessment Date Thrive assessed 03/07/25 03/07/25 15:20 Currently or been in a relationship where the following occur: No concerns reported Const General: healthy appearing, no acute distress, alert and awake Nutritional Appearance: well nourished Orientation/consciousness: oriented to person, oriented to place and oriented to time HENMT Ears: TM's normal bilaterally General nose exam: Normal nasal mucous membranes and turbinates present Eyes Conjunctivae: conjunctivae normal Sclerae: sclerae normal Pupils: Equal, round and reactive pupils present Neck Neck: Yes no lymphadenopathy and Yes no JVD Thyroid: Thyroid normal Carotids: no bruits Resp Effort & Inspection: normal respiratory effort and not tachypneic Auscultation: no crackles, no rales, no rhonchi and no wheezes Cardio Rate: regular rate Rhythm: regular rhythm Heart sounds: S1 normal heart sound present, S2 normal heart sound present, no murmurs and normal S1 and S2 GI Palpation (GI): Soft to palpation, nontender, no hepatomegaly and no splenomegaly Auscultation: normal bowel sounds Skin General skin exam: no rashes or lesions noted and dry skin Neuro General: oriented to person, oriented to place and oriented to time Cranial nerves: Yes Equal, round and reactive pupils present Speech: No Abnormal speech present Gait exam (Neuro): Normal gait present Motor exam (neuro): no tremor noted Extrem Right upper extremity: full ROM Left upper extremity: full ROM Right lower extremity: full ROM; no edema Left lower extremity: full ROM; no edema Psych Mental Status: mental status grossly normal Speech and movement: Normal speech and movement present Affect: normal affect Attitude: cooperative Thought process: Normal thought process present Results Reviewed Results Reviewed: Laboratory Tests 03/06/25 06:47 WBC 9.7 RBC 5.03 Hgb 14.0 Hct 42.3 MCV 84.1 MCH 27.8 MCHC 33.1 RDW 13.2 Plt Count 312 Sodium 143 Potassium 3.7 Chloride 107 Carbon Dioxide 26 Anion Gap 14 BUN 17 H Creatinine 1.01 Estimated GFR > 60 Fasting Glucose 102 H Calcium 9.1 Total Bilirubin 0.4 AST 28 ALT 30 Alkaline Phosphatase 62 Total Protein 7.6 Albumin 4.6 Triglycerides 166 H Cholesterol 197 LDL Cholesterol, Calc 124 H HDL Cholesterol 40 L 25-OH Vitamin D Total 38.6 TSH 2.42 Urine Color Yellow Urine Appearance Clear Urine pH 5.5 Ur Specific [place] >= 1.030 H Urine Protein Trace Urine Glucose (UA) Negative Urine Ketones Trace Urine Blood Negative Urine Nitrite Negative Ur Leukocyte Esterase Negative Urine Creatinine 351.40 Urine Microalbumin 17.0 Microalb/Creat Ratio 4.8 Coding Level of Care Code Est Pt Level 4 (93843) Diagnoses Hypertension, unspecified type I10 Hypertension type: unspecified Mixed hypercholesterolemia and hypertriglyceridemia E78.2 Morbid obesity E66.01 Mild intermittent asthma without complication J45.20 Asthma complication type: uncomplicated Asthma persistence: intermittent Asthma severity: mild BRUNA (obstructive sleep apnea) G47.33 Time Spent (min) 38 Assessment & Plan Assessment & Plan (1) Hypertension: Code(s): I10 - Essential (primary) hypertension Category: Medical Qualifiers: Hypertension type: unspecified Qualified Code(s): I10 - Essential (primary) hypertension Plan: Blood pressure is 140/86 above goal Reinforced low-salt diet and activity as tolerated Continue hydrochlorothiazide 25 mg daily, metoprolol tartrate 100 mg b.i.d., amlodipine increased to 10 mg daily (2) Mixed hypercholesterolemia and hypertriglyceridemia: Code(s): E78.2 - Mixed hyperlipidemia Category: Medical Plan: Triglycerides 166, total cholesterol 197, LDL 124 from 142, HDL 40 Discussed lifestyle modifications including dietary changes and physical activity We will repeat lipid panel in 3 months (3) Morbid obesity: Code(s): E66.01 - Morbid (severe) obesity due to excess calories Category: Medical Plan: Encouraged diet and an exercise to lose weight (4) Asthma: Code(s): J45.909 - Unspecified asthma, uncomplicated Category: Medical Qualifiers: Asthma complication type: uncomplicated Asthma persistence: intermittent Asthma severity: mild Qualified Code(s): J45.20 - Mild intermittent asthma, uncomplicated Plan: Denies dyspnea Continue Ventolin HFA 2 puffs q.6 p.r.n. (5) BRUNA (obstructive sleep apnea): Code(s): G47.33 - Obstructive sleep apnea (adult) (pediatric) Category: Medical Plan: Sleep study completed on 02/17/2025 shows: Obstructive sleep apnea, very severe, total sleep time AHI 44 in his snoring 444% of sleep time. There is also significant nocturnal hypoxemia with average oxygen sat at 90% lowest that is was 78% oxygen sats we will low 88% for 81 minutes. Recommendation for CPAP titration in the lab. Sleep medicine referral placed Orders: Orders Hemoglobin A1c 3 Months E66.01 - Morbid (severe) obesity due to excess calories, E78.2 - Mixed hyperlipidemia, G47.33 - Obstructive sleep apnea (adult) (pediatric), I10 - Essential (primary) hypertension, J45.20 - Mild intermittent asthma, uncomplicated Comprehensive [place]. Panel Fast 3 Months E66.01 - Morbid (severe) obesity due to excess calories, E78.2 - Mixed hyperlipidemia, G47.33 - Obstructive sleep apnea (adult) (pediatric), I10 - Essential (primary) hypertension, J45.20 - Mild intermittent asthma, uncomplicated Lipid Panel 3 Months E66.01 - Morbid (severe) obesity due to excess calories, E78.2 - Mixed hyperlipidemia, G47.33 - Obstructive sleep apnea (adult) (pediatric), I10 - Essential (primary) hypertension, J45.20 - Mild intermittent asthma, uncomplicated TSH reflex Free T4 3 Months E66.01 - Morbid (severe) obesity due to excess calories, E78.2 - Mixed hyperlipidemia, G47.33 - Obstructive sleep apnea (adult) (pediatric), I10 - Essential (primary) hypertension, J45.20 - Mild intermittent asthma, uncomplicated UA CC w/rflx Micro + Cult 3 Months E66.01 - Morbid (severe) obesity due to excess calories, E78.2 - Mixed hyperlipidemia, G47.33 - Obstructive sleep apnea (adult) (pediatric), I10 - Essential (primary) hypertension, J45.20 - Mild intermittent asthma, uncomplicated Referrals Sleep Medicine Referral G47.33 - Obstructive sleep apnea (adult) (pediatric) Medications: New amlodipine 10 mg PO DAILY 30 tabs 3RF Discontinued amlodipine Discontinued Reason: Doctor's Order 5 mg PO DAILY 30 tabs 2RF I10 - Essential (primary) hypertension
== END 2025-03-07 15:51 | disposition home or self-care (01) ==
LOC: HO.HMCH 15:08
DX: I10 Essential (primary) hypertension (principal); E78.2 Mixed hyperlipidemia; E66.01 Morbid (severe) obesity due to excess calories; Z68.43 Body mass index [BMI] 50.0-59.9, adult; J45.20 Mild intermittent asthma, uncomplicated; G47.33 Obstructive sleep apnea (adult) (pediatric)

== ENCOUNTER 2025-03-13 08:50 | Outpatient (AMB) | payer BC, SELFPAY ==
[2025-03-13 08:54] VITALS: BP 146/92; PULSE 68; O2SAT 94; BMI 52.3
--- NOTE | 2025-03-13 08:54 | MHC.OFFVIS ---
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 He reports discomfort with the home sleep study due to the nasal apparatus, and the results indicated severe sleep apnea, necessitating an in-lab study for further evaluation. HST in chart(AHI-44, NOVA-78%) Accompanied by: Self / Same As Patient Allergies ibuprofen (Advil) Allergy (Unknown, Verified 03/13/25 08:57) hives HPI Comments Details: 44 year old male with HTN is referred to us by his pcp for evaluation of sleep apnea. HST c/w AHI-44, oxygen NOVA-78%, nocturnal hypoxemia in lab titration is needed once established on cpap therapy. BP is elevated 146/92. Labs reviewed with patient. He goes to bed at 10pm and wakes up at 5:30am, with one bathroom break. He is chronically feeling fatigued, he has a stressful job. He snores and wakes himself up as he gasps for air, per his .He has multiple arousals at night. Denies morning headaches and denies grinding his teeth. His mood and memory is stable. Denies RLS symptoms, denies burning tingling, and numbness. He is trying to lose weight, and walks 2-3 miles, 2x/week he gets discouraged as he is not seeing results. He is interested in weight management as his BMI is 52. He denies smoking and alcohol use. FH + for [place] grand father in 60s, and his dad has T2DM. [facility] Medical History Uncontrolled hypertension Morbid obesity Hypertension Surgical History History of wisdom tooth extraction Family History Father No problems noted. Mother No problems noted. Social History Housing: House Patient Tobacco Use Status: Refuse Tobacco use screen e-Cigarette/Vaping Use: Never Used Second Hand Smoke Exposure: No service: No Current occupational status: employed Current occupational exposures/hazards: No Cognitive needs: No Hearing needs: No Vision needs: Yes (glasses) Physical Exam Vital Signs: Last Vital Signs Pulse 68 03/13/25 08:54 BP 146/92 H 03/13/25 08:54 Pulse Ox 94 03/13/25 08:54 Oxygen Delivery Method Room Air 03/13/25 08:54 BMI result Body Mass Index 52.3 Const General: cooperative, comfortable and no acute distress Nutritional Appearance: obese (BMI is 52) morbidly obese Orientation/consciousness: patient oriented x3 HEENT Face and sinus: Yes face symmetric Throat: Yes other (mallampti score is 4) Eyes Pupils: Equal, round and reactive pupils present Neck Neck: Yes full ROM Resp Effort & Inspection: normal respiratory effort and able to speak in complete sentences Neuro General: patient oriented x3 and moves all extremities Cranial nerves: Yes Facial sensation intact/muscles of mastication intact, Yes Equal, round and reactive pupils present, Yes Normal facial strength present, Yes Midline tongue present, Yes Ability to bilaterally rotate head present and Yes Ability to bilaterally elevate shoulders present Cognition (Neuro): normal cognition Gait exam (Neuro): Normal gait present Motor exam (neuro): 5/5 motor strength present throughout and Normal motor muscle tone present throughout Psych Appearance: grossly normal Thought process: Normal thought process present Thought content: Normal thought content present Results Reviewed Results Reviewed: HST c/w AHI-44, oxygen NOVA-78%, nocturnal hypoxemia in lab titration is needed once established on cpap therapy. BP is elevated 146/92. Labs reviewed with patient. Assessment & Plan Assessment & Plan (1) BRUNA (obstructive sleep apnea): Code(s): G47.33 - Obstructive sleep apnea (adult) (pediatric) Category: Medical (2) Chronic fatigue: Code(s): R53.82 - Chronic fatigue, unspecified Category: Medical (3) Obesity: Code(s): E66.9 - Obesity, unspecified Category: Medical Qualifiers: Body mass index: BMI 50.0-59.9 Obesity classification: adult class 3 (BMI >= 40) Obesity type: due to excess calories Serious obesity comorbidity presence: unspecified whether serious comorbidity present Qualified Code(s): E66.813 - Obesity, class 3; Z68.43 - Body mass index [BMI] 50.0-59.9, adult Plan BRUNA start cpap use and >4 hours nightly, wash mask, rinse hoses, change filters and fill reservoir with water. BMI is elevated weight management referral. Labs to r/o chronic fatigue. TSH is normal, will assess B12, Homocysteine and MMA and A1c. F/U in 3 months for compliance. Orders: Orders Homocysteine 03/13/25 G47.33 - Obstructive sleep apnea (adult) (pediatric), G47.9 - Sleep disorder, unspecified, R53.82 - Chronic fatigue, unspecified, R53.83 - Other fatigue Vitamin B12 and Folate 03/13/25 G47.33 - Obstructive sleep apnea (adult) (pediatric), R53.82 - Chronic fatigue, unspecified Methylmalonic Acid 03/13/25 G47.33 - Obstructive sleep apnea (adult) (pediatric), G47.9 - Sleep disorder, unspecified, R53.82 - Chronic fatigue, unspecified, R53.83 - Other fatigue Hemoglobin A1c 03/13/25 G47.33 - Obstructive sleep apnea (adult) (pediatric), R53.82 - Chronic fatigue, unspecified Referrals Medical Weight Management Referral E66.01 - Morbid (severe) obesity due to excess calories Patient Instructions: Sleep Hygiene provided: set a scheduled bedtime and wake time to help regulate the circadian rhythm and balance the release of pituitary hormones. Sleep in a dark room, temperatures below 68 degrees, and no devices n bed. Limit caffeinated products 6 hours prior to bed, and limit fluids 2-4 hours prior to bed. Gentle night yoga, diffusing essential oils, and playing soft music can be relaxing. Coding Level of Care Code Est Pt Level 4 (63321) Diagnoses BRUNA (obstructive sleep apnea) G47.33 Chronic fatigue R53.82 Class 3 severe obesity due to excess calories with body mass index (BMI) of 50.0 to 59.9 in adult, unspecified whether serious comorbidity present E66.813; Z68.43 Body mass index: BMI 50.0-59.9 Obesity classification: adult class 3 (BMI >= 40) Obesity type: due to excess calories Serious obesity comorbidity presence: unspecified whether serious comorbidity present Comment bruna / cpap therapy Sleep Questionnaire Difficulty falling asleep: No Difficulty staying asleep?: Yes Number of arousals: 1-2 Snoring: Yes Witnessed apneas: Yes Gasping arousals: Yes Nocturia: No GERD: Yes (takes a tums) Vivid dreams: Yes Acting out dreams: No Abnormal behavior in sleep: Yes (punching/ flailing) Abnormal movements in sleep: Yes ( Flailing / punching) Morning headaches: No Excessive daytime sleepiness: No Daytime naps: No Restless legs: No Hallucinations: No Sleep paralysis: No Drop attacks: No Sleep Study: Yes CPAP: No
--- OUTSIDE RECORDS SUMMARY | 2025-03-13 09:11 | XMS_ITS | Clinical Summary ---
Author Organization [facility] Address [address] [place] [address] Phone Care Team Providers Care Prizer Hand Name Role Phone Omar Fajardo MD Primary Care Provider [phone] Allergies Active Allergy Reactions Criticality Noted Date [...] topic Medical Devices Not on file [facility] [place] [address] [place] [address] [place] [address] [place] [address] HMO POS [facility] HMO POS [facility] H[facility] POS [facility] HMO POS [facility] HMO POS Care Teams Prizer Hand Relationship Specialty Start Date End Date Omar Fajardo MD [address] [place] [address] [place] [address] PCP - General 12/07/21 Additional Source Comments The information contained in this document represents components of the legal health record. It is not the complete legal health record.[facility]
== END 2025-03-13 09:42 | disposition home or self-care (01) ==
LOC: HO.HSMS 08:51
PROVIDERS: Visit Provider Physician Assistant Medical
DX: G47.33 Obstructive sleep apnea (adult) (pediatric) (principal); R53.82 Chronic fatigue, unspecified; E66.813 Obesity, class 3; Z68.43 Body mass index [BMI] 50.0-59.9, adult
CPT/HCPCS: 99214

== ENCOUNTER 2025-05-21 08:13 | Outpatient (AMB) | payer BC, SELFPAY ==
--- NOTE | 2025-05-21 08:17 | A.OFFVIS_ITS ---
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 Allergies ibuprofen (Advil) Allergy (Unknown, Verified 05/21/25 08:18) hives Medication List - Last Reconciled 05/21/25 by Karlo Brewster MD albuterol sulfate 90 mcg/actuation (Ventolin HFA) 2 puffs inhalation Q6H PRN amlodipine 10 mg PO DAILY diphenhydramine HCl (Benadryl) 50 mg (2 x 25 mg) PO BID PRN epinephrine (EpiPen 2-Buddy) 0.3 mg (0.3 mL) IM Q4H PRN fluticasone propionate 50 mcg/actuation 1 spray intranasal BID hydrochlorothiazide 25 mg PO DAILY metoprolol tartrate 100 mg PO BID HPI 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: Details: Start time: 8.10am, End time: 9.04am ?I spent 51 minutes speaking with the patient on the phone plus an additional 5 minutes reviewing and updating records for a total of 56 minutes HPI Comments Details: Previous weight loss efforts: self diets and exercise Wakes up: 5am, Sleeps: 10pm Breakfast: 6am (eggs, toast and banana) Lunch: 11am-12pm (sandwiches) Dinner: 6-7pm (pasta, burgers) Snacks: 4pm (chips or fruit), 9pm (candy occasionally) Exercise: full gym at work Beverages: Coffee (10oz cup/d with creamer), Tea: none, Soda: none, Juice: none, ETOH: 1/wk (Whiskey or beer) [facility] Medical History (Updated 05/21/25 @ 08:20 by Karlo Brewster MD) Obstructive sleep apnea on CPAP Uncontrolled hypertension Morbid obesity Hypertension Surgical History History of wisdom tooth extraction Family History Father No problems noted. Mother No problems noted. Social History (Updated 04/28/25 @ 14:12 by AMANDA Lizarraga Housing: House Alcohol intake: current Alcohol intake frequency: holidays/special occasions only Patient Tobacco Use Status: Never used Tobacco e-Cigarette/Vaping Use: Never Used Second Hand Smoke Exposure: No service: No Current occupational status: employed Current occupational exposures/hazards: No Cognitive needs: No Hearing needs: No Vision needs: Yes (glasses) Telehealth Telehealth Telehealth Platform: Telephone Location of provider rendering services: practice address Location of patient: address on file Patient Identification confirmed using: Name, : Yes Telehealth method: voice only Patient verbally consented to treatment: Yes Patient verbally consented to billing insurance company: Yes Patient informed of any privacy concerns related to visit: Yes Minutes spent on Phone/Video with Pt.: 56 Assessment & Plan Assessment & Plan (1) Morbid obesity: Code(s): E66.01 - Morbid (severe) obesity due to excess calories Category: Medical Plan: 1.? Plan for lap sleeve gastrectomy. If diaphragmatic or ventral hernias are present at time of surgery, these will be repaired laparoscopically as well. I emphasized the importance of close follow-up, adherence to instructions and good communication. The surgery does not replace the need to change your lifestlyle which is the cause of the obesity problem. The surgery provides the motivation to try again to change your lifestyle, it reduces the appetite and make the transition to a better lifestyle easier and doubles the amount of weight you would lose compared to doing the lifestyle change without the surgery. You will need to be on a liquid diet with protein shakes for 2 weeks before surgery to maximize weight loss and boost your nutritional status to recover better from surgery and also for the first two weeks after surgery to let the stomach heal before we introduce other foods. After the first 2 weeks we will introduce protein bars and soft foods like scrambled eggs, cottage cheese and yogurt and after the 6th week will introduce meat, fish and cooked vegetables in small amounts. Over time you should be able to eat everything in small amounts. Side effects like nausea, vomiting, heartburn or abdominal pain are not common in the practice unless you are not following in the practice. This operation requires lifetime commitment to following in our practice and communication with me. You will much less weight and experience side effects if you don?t communicate or not following in the practice. Complications are rare and in our practice is about 1/10 of the national average. However, you can develop bleeding that may require transfusion (hasn?t happened for year in the practice), you may from complications (we did not have any deaths in the practice) and infections. Infections are usually a result of breakdown in communication or not understanding or following directions correctly. They are difficult to treat, they can happen during the first 6 weeks, they may require to be in the hospital for weeks or even months, not being able to eat by mouth and you may have drains and surgeries to try and correct the issue. Other risks and complications include possible conversion to an open procedure, leaks, small bowel obstruction, blood clots, cardiac, or pulmonary complications, as custodial complications such as ulcers, insufficient weight loss and vitamin deficiencies. 2. Nutritional counseling. Start with one premade PREMIER protein (buy at [employer] or [employer]) shake (8oz of Premier and NOT the whole bottle) at 6am-8am, one protein bar (Fit Crunch protein bar, buy at [employer], or [employer]) at 9am-11am, another premade PREMIER protein shake (8oz of Premier and NOT the whole bottle) at 12pm-2pm, another [employer] protein bar at 3pm-5pm,? dinner at 6pm (12 forks of protein and 12 forks of salad/vegetables) and one more [employer] protein bar at 8pm-10pm. So you do 2 protein shakes, 3 protein bars and one meal per day. Meal to include lean meat (beef, fish, pork, turkey, chicken), or ukrainian yogurt, or egg whites, or beans with a salad with olive oil and fruits (berries, pears, apples, kiwi). Avoid salt, breads, potatoes, rice, pasta, desserts. 3. Each shake would be drunk slowly, like coffee in a period of 2 hours. 4. Cut each bar in 4 pieces and eat each piece in 30min ?to make each bar last 2 hours. 5. I emphasized the importance of measuring accurately the food portion and measure it when serving the food in plate 6. The meal portions include 12 full-size forks of meat and 12 full-size forks of salad. You always eat the meat portion but you can replace up to 6 forks for salad/vegetables with rice, potatoes or pasta, or a fruit ?if you like. The less you do it the better weight loss will be. 7. One full-size fork is what it can be scooped on the fork without falling aside and not what can be bit with the fork. Use regular forks like those you find in a typical restaurant. 8.? Please buy the body composition scale we discussed and send me weight measurements as soon as possible and then once a week. Always include your diet and exercise plan. 9. Start treadmill at your work's Gym with an incline of 2.0 and speed of 2.5. Increase incline by 1 every 3 min to a max incline of 8.0, stay 3min at 8.0 and then return to 2.0 and repeat same steps until calorie goal is met. Goal is to burn 2000 calories per week on exercise, which means either 400 calories 5 days per day. 10. The best choice however would be to purchase a stationary bike, elliptical or treadmill at home that can track calories. 11. Goal is to lose at least 1.5-2lbs per week 12. Goal to lose 10% of your weight before surgery, which is about 29lbs. Ultimate weight goal: 300lbs before surgery 13. Please follow the diet plan exactly without any change. If you don't like something about the plan or you feel hungry you need to communicate with me so I can help you revise the plan. You should not change the plan yourself 14. To be scheduled for EGD to assess the stomach's anatomy. The possibility of biopsies was discussed. Patient needs to avoid use of NSAIDs and aspirin for 1 week prior to EGD. You must be on liquids only the day before your endoscopy. Risks of perforation and bleeding was discussed with the patient. This will be an outpatient procedure with IV sedation. 15. I ordered a medication to help you with the weight loss which is called Zepbound. My office will try to authorize it. Please let me know when you receive it so I can give you a meal and exercise plan. Common side effects include nausea, vomiting, constipation, diarrhea, abdominal pain. Please let me know if you develop any of these symptoms. Orders: Orders Insulin Today E66.01 - Morbid (severe) obesity due to excess calories, E78.2 - Mixed hyperlipidemia, G47.33 - Obstructive sleep apnea (adult) (pediatric), I10 - Essential (primary) hypertension, J45.20 - Mild intermittent asthma, uncomplicated Hemoglobin A1c Today E66.01 - Morbid (severe) obesity due to excess calories, E78.2 - Mixed hyperlipidemia, G47.33 - Obstructive sleep apnea (adult) (pediatric), I10 - Essential (primary) hypertension, J45.20 - Mild intermittent asthma, uncomplicated Complete Blood Count Auto Diff Today E66.01 - Morbid (severe) obesity due to excess calories, E78.2 - Mixed hyperlipidemia, G47.33 - Obstructive sleep apnea (adult) (pediatric), I10 - Essential (primary) hypertension, J45.20 - Mild intermittent asthma, uncomplicated C Reactive Protein Today E66.01 - Morbid (severe) obesity due to excess calories, E78.2 - Mixed hyperlipidemia, G47.33 - Obstructive sleep apnea (adult) (pediatric), I10 - Essential (primary) hypertension, J45.20 - Mild intermittent asthma, uncomplicated Vitamin A Today E66.01 - Morbid (severe) obesity due to excess calories, E78.2 - Mixed hyperlipidemia, G47.33 - Obstructive sleep apnea (adult) (pediatric), I10 - Essential (primary) hypertension, J45.20 - Mild intermittent asthma, uncomplicated Ferritin Today E66.01 - Morbid (severe) obesity due to excess calories, E78.2 - Mixed hyperlipidemia, G47.33 - Obstructive sleep apnea (adult) (pediatric), I10 - Essential (primary) hypertension, J45.20 - Mild intermittent asthma, uncomplicated XR chest 2V Today E66.01 - Morbid (severe) obesity due to excess calories, E78.2 - Mixed hyperlipidemia, G47.33 - Obstructive sleep apnea (adult) (pediatric), I10 - Essential (primary) hypertension, J45.20 - Mild intermittent asthma, uncomplicated ECG 12 lead EKG Today E66.01 - Morbid (severe) obesity due to excess calories, E78.2 - Mixed hyperlipidemia, G47.33 - Obstructive sleep apnea (adult) (pediatric), I10 - Essential (primary) hypertension, J45.20 - Mild intermittent asthma, uncomplicated FL upper GI w air Today E66.01 - Morbid (severe) obesity due to excess calories, E78.2 - Mixed hyperlipidemia, G47.33 - Obstructive sleep apnea (adult) (pediatric), I10 - Essential (primary) hypertension, J45.20 - Mild intermittent asthma, uncomplicated H Pylori Breath Test Today E66.01 - Morbid (severe) obesity due to excess calories, E78.2 - Mixed hyperlipidemia, G47.33 - Obstructive sleep apnea (adult) (pediatric), I10 - Essential (primary) hypertension, J45.20 - Mild intermittent asthma, uncomplicated Lipid Panel Today E66.01 - Morbid (severe) obesity due to excess calories, E78.2 - Mixed hyperlipidemia, G47.33 - Obstructive sleep apnea (adult) (pediatric), I10 - Essential (primary) hypertension, J45.20 - Mild intermittent asthma, uncomplicated IRON PROFILE Today E66.01 - Morbid (severe) obesity due to excess calories, E78.2 - Mixed hyperlipidemia, G47.33 - Obstructive sleep apnea (adult) (pediatric), I10 - Essential (primary) hypertension, J45.20 - Mild intermittent asthma, uncomplicated Comprehensive Met. Panel Today E66.01 - Morbid (severe) obesity due to excess calories, E78.2 - Mixed hyperlipidemia, G47.33 - Obstructive sleep apnea (adult) (pediatric), I10 - Essential (primary) hypertension, J45.20 - Mild intermittent asthma, uncomplicated Vitamin B12 and Folate Today E66.01 - Morbid (severe) obesity due to excess calories, E78.2 - Mixed hyperlipidemia, G47.33 - Obstructive sleep apnea (adult) (pediatric), I10 - Essential (primary) hypertension, J45.20 - Mild intermittent asthma, uncomplicated Zinc Today E66.01 - Morbid (severe) obesity due to excess calories, E78.2 - Mixed hyperlipidemia, G47.33 - Obstructive sleep apnea (adult) (pediatric), I10 - Essential (primary) hypertension, J45.20 - Mild intermittent asthma, uncomplicated Vitamin B1 Today E66.01 - Morbid (severe) obesity due to excess calories, E78.2 - Mixed hyperlipidemia, G47.33 - Obstructive sleep apnea (adult) (pediatric), I10 - Essential (primary) hypertension, J45.20 - Mild intermittent asthma, uncomplicated TSH reflex Free T4 Today E66.01 - Morbid (severe) obesity due to excess calories, E78.2 - Mixed hyperlipidemia, G47.33 - Obstructive sleep apnea (adult) (pediatric), I10 - Essential (primary) hypertension, J45.20 - Mild intermittent asthma, uncomplicated Vitamin D 25-OH Total Today E66.01 - Morbid (severe) obesity due to excess calories, E78.2 - Mixed hyperlipidemia, G47.33 - Obstructive sleep apnea (adult) (pediatric), I10 - Essential (primary) hypertension, J45.20 - Mild intermittent asthma, uncomplicated US abdomen comp w elastography Today E66.01 - Morbid (severe) obesity due to excess calories, E78.2 - Mixed hyperlipidemia, G47.33 - Obstructive sleep apnea (adult) (pediatric), I10 - Essential (primary) hypertension, J45.20 - Mild intermittent asthma, uncomplicated Referrals Behavioral Health Referral E66.01 - Morbid (severe) obesity due to excess calories, E78.2 - Mixed hyperlipidemia, G47.33 - Obstructive sleep apnea (adult) (pediatric), I10 - Essential (primary) hypertension, J45.20 - Mild intermittent asthma, uncomplicated Nutrition/Dietitian Referral E66.01 - Morbid (severe) obesity due to excess calories, E78.2 - Mixed hyperlipidemia, G47.33 - Obstructive sleep apnea (adult) (pediatric), I10 - Essential (primary) hypertension, J45.20 - Mild intermittent asthma, uncomplicated Medications: New tirzepatide (weight loss) (Zepbound) 2.5 mg (0.5 mL) subcut QWEEK 2 mL 0RF 4 weeks
[2025-05-21 08:25] VITALS: BMI 53.2
== END 2025-05-21 09:05 | disposition home or self-care (01) ==
LOC: HO.HBS 08:13
PROVIDERS: Visit Provider Surgery
DX: E66.01 Morbid (severe) obesity due to excess calories (principal); Z68.43 Body mass index [BMI] 50.0-59.9, adult
CPT/HCPCS: 99204

== ENCOUNTER 2025-05-28 06:11 | Outpatient (REF) | payer BC, SELFPAY ==
--- NOTE | ~2025-05-28 | XR_ITS ---
EXAMINATION: XR CHEST CLINICAL INFORMATION: E66.01 - Morbid (severe) obesity due to excess calories COMPARISON: June 27, 2017. TECHNIQUE: PA and lateral views FINDINGS: Pulmonary reticular pattern. Poor inspiration. No consolidation, pleural effusion or pneumothorax. Cardiomediastinal silhouette size is normal. Mild multilevel thoracic spondylosis. Degenerative changes in the right acromioclavicular joint. Limited lateral projection secondary to overlapping of the upper extremities. XR/XR chest 2V IMPRESSION: No acute airspace disease. Degenerative changes, right acromioclavicular joint. Electronically signed by: Dexter Patricia MD 05/28/2025 07:09 AM EDT
--- OUTSIDE RECORDS SUMMARY | 2025-05-28 06:15 | XMS_ITS | Clinical Summary ---
Author Organization [facility] Address [address] [place] [address] Phone Care Team Providers Care Inside Sales Specialist Name Role Phone Omar Fajardo MD Primary Care Provider [phone] Allergies Active Allergy Reactions Criticality Noted Date [...] HEPATITIS C SCREENING 1998 HIV ONE-TIME SCREENING (18-65 YEARS) 1998 INFLUENZA VACCINE (#1) 2025 , 04/10/2020, 05/22/2019, Additional history exists COVID-19 VACCINE () 04/07/2025 06/01/2021, 09/14/2020, 08/17/2020 COLOGUARD 2025 COLONOSCOPY 2025 COLORECTAL CANCER SCREENING 2025 FIT TEST 2025 FOBT 2025 SIGMOIDOSCOPY 2025 VIRTUAL COLONOSCOPY 2025 SMOKING STATUS SCREENING (Once After 26 Yrs) Completed 12/07/2021 HEPATITIS A [...] (0-49 years) Aged Out No longer eligible based on patient's age to complete this topic Medical Devices Not on file [facility] [place] [address] [place] [address] [place] [address] [place] [address] HMO POS [facility] [place] [address] [place] [address] HMO POS [facility] POS [facility] POS [facility] POS [facility] H[facility] POS Care Teams Inside Sales Specialist Relationship Specialty Start Date End Date Omar Fajardo MD [address] [place] [address] [place] [address] PCP - General 12/07/21 Additional Source Comments The information contained in this document represents components of the legal health record. It is not the complete legal health record.[facility]
[2025-05-28 06:32] LABS: MANUAL DIFF FLAG NO
--- NOTE | 2025-05-28 07:30 | ECG_ITS ---
Test Reason : e66.01 Blood Pressure : */* mmHG Vent. Rate : 57 BPM Atrial Rate : 57 BPM P-R Int : 220 ms QRS Dur : 82 ms QT Int : 426 ms P-R-T Axes : 46 36 11 degrees QTcB Int : 414 ms Sinus bradycardia with 1st degree A-V block Otherwise normal ECG When compared with ECG of 05-Nov-2019 07:03, No significant change was found Referred By: Karlo Brewster Electronically Signed By: ISABEL HUNT MD
[2025-05-28 07:46] LABS: Hematocrit 42.1 % (42.0-52.0); Hemoglobin 13.7 g/dl (14.0-18.0); Imm Gran Abs Auto 0.03 X10*3/uL (0.00-0.03); Imm Gran Pct Auto 0.4 % (0.0-0.4); Lymphocytes Absolute Auto 1.8 X10*3/uL (1.2-4.9); Mean Corpuscular HGB Conc 32.5 g/dl (31.0-36.0); Mean Corpuscular Hemoglobin 27.6 pg (27.0-33.0); Mean Corpuscular Volume 84.9 fL (80.0-98.0); NRBC Abs Auto 0.000 X10*3/uL (0.0-0.012); NRBC Pct Auto 0.0 /100WBC (0.0-0.2); Platelet Count 356 X10*3/uL (160-400); Red Blood Count 4.96 X10*6/uL (4.60-5.80); White Blood Count 7.6 X10*3/uL (4.8-10.8)
[2025-05-28 08:21] LABS: Alanine Aminotransferase 29 U/L (0-40); Albumin Level 4.7 g/dL (3.5-5.0); Alkaline Phosphatase 48 U/L (39-117); Anion Gap 13 (12-20); Aspartate Amino Transferase 32 U/L (5-37); Blood Urea Nitrogen 25 mg/dL (9-16); Calcium 9.4 mg/dL (8.4-10.2); Carbon Dioxide 27 mmol/L (22-29); Chloride 105 mmol/L (96-108); Cholesterol 205 mg/dL (<200); Estimated Glomerular Filt Rate > 60; HDL Cholesterol 35 mg/dL (>40); Iron 51 mcg/dL (45-160); Percent Iron Saturation 20 % (15-50); Potassium 3.3 mmol/L (3.3-5.1); Sodium 142 mmol/L (135-145); Total Iron Binding Capacity 255 mcg/dL (228-428); Total Protein 7.5 g/dL (6.5-8.0); Triglycerides 127 mg/dL (<150); Unsaturated Iron Binding 204 ug/dL
[2025-05-28 08:41] LABS: Ferritin 399 ng/mL (20-250)
[2025-05-28 08:47] LABS: Folate 12.9 ng/mL (> or = 4.0); Vitamin B12 508 pg/mL (200-900)
== END 2025-05-28 06:12 | disposition home or self-care (01) ==
LOC: HO.XRAY 06:11
PROVIDERS: Visit Provider Surgery
DX: Z13.1 Encounter for screening for diabetes mellitus (principal); E66.01 Morbid (severe) obesity due to excess calories; I10 Essential (primary) hypertension; E78.2 Mixed hyperlipidemia; J45.20 Mild intermittent asthma, uncomplicated; G47.33 Obstructive sleep apnea (adult) (pediatric)
CPT/HCPCS: 36415; 71046; 80053; 80061; 82306; 82607; 82728; 82746; 83036; 83525; 83540; 84425; 84443; 84590; 84630; 85025; 86140; 93005

== ENCOUNTER → 2025-05-28 06:32 | Outpatient (BNV) | payer BC, SELFPAY | PROVIDERS: Visit Provider Radiology Diagnostic Radiology | DX: E66.01 Morbid (severe) obesity due to excess calories (principal) | CPT/HCPCS: 71046 ==

== ENCOUNTER → 2025-05-28 07:30 | Outpatient (BNV) | payer BC, SELFPAY | PROVIDERS: Visit Provider Internal Medicine Cardiovascular Disease | DX: R00.1 Bradycardia, unspecified (principal); I44.0 Atrioventricular block, first degree | CPT/HCPCS: 93010 ==

== ENCOUNTER 2025-06-10 15:25 | Outpatient (AMB) | payer BC, SELFPAY ==
--- NOTE | 2025-06-10 15:23 | A.OFFPC_ITS ---
Vital Signs 06/10/25 15:28 Height 5 ft 6 in BP 119/80 Blood Pressure Location Lt brachial Position Sitting Pulse 63 Pulse Source Pulse Oximeter Temp 97.3 F Temp Source Temporal Artery Scan Pulse Oximetry (%) 96 Oxygen Delivery Method Room Air Intake Visit Reasons: htn/bruna/hld [employer] Required: No Accompanied by: Self / Same As Patient Allergies ibuprofen (Advil) Allergy (Unknown, Verified 06/15/25 15:05) hives Medication List - Last Reconciled 06/10/25 by WEN Kilpatrick albuterol sulfate 90 mcg/actuation (Ventolin HFA) 2 puffs inhalation Q6H PRN amlodipine 10 mg PO DAILY diphenhydramine HCl (Benadryl) 50 mg (2 x 25 mg) PO BID PRN epinephrine (EpiPen 2-Buddy) 0.3 mg (0.3 mL) IM Q4H PRN fluticasone propionate 50 mcg/actuation 1 spray intranasal BID hydrochlorothiazide 25 mg PO DAILY metoprolol tartrate 100 mg PO BID tirzepatide (weight loss) (Zepbound) 5 mg (0.5 mL) subcut QWEEK tirzepatide (weight loss) (Zepbound) 2.5 mg (0.5 mL) subcut QWEEK 4 weeks Tobacco use date assessed: 03/07/25 Dental Screening Dental Screen Date: 03/07/25 Did you have a dental visit in the last 12 months?: Yes Did you have a dental problem in the last 6 months where you did not have access to dental care?: No Was dental information given to patient?: Patient has dentist HPI htn/bruna/hld HPI Details The patient is a 45-year-old male presenting for a follow-up visit for lab review and general health management. He reports significant improvement with his CPAP therapy for sleep apnea, stating it feels amazing and he is no longer falling asleep during the day. He notes he is very compliant, though he fell asleep one recent night without it and on another occasion only slept for two hours due to work. The patient is participating in a weight management program and is on a high-p rotein, low-calorie diet. His diet includes chicken, beef, beans, and fish. He also reports using his asthma inhaler less frequently since starting CPAP therapy. Regarding lab trends, his hemoglobin has been noted as a few points low but not clinically significant. His LDL cholesterol has increased, while his HDL has dropped slightly from a previous level of 40. He has been taking an omega-3 supplement since his last visit. COUNT INCLUDES THE [facility] Medical History Obstructive sleep apnea on CPAP Uncontrolled hypertension Morbid obesity Hypertension Surgical History History of wisdom tooth extraction Family History Father No problems noted. Mother No problems noted. Social History Housing: House Alcohol intake: current Alcohol intake frequency: holidays/special occasions only Patient Tobacco Use Status: Never used Tobacco e-Cigarette/Vaping Use: Never Used Second Hand Smoke Exposure: No service: No Current occupational status: employed Current occupational exposures/hazards: No Cognitive needs: No Hearing needs: No Vision needs: Yes (glasses) Questionnaire PHQ-9 Over the last 2 weeks, how often have you been bothered by any of the following problems? 1. Little interest or pleasure in doing things: not at all 2. Feeling down, depressed, or hopeless: not at all 3. Trouble falling or staying asleep, or sleeping too much: not at all 4. Feeling tired or having little energy: not at all 5. Poor appetite or overeating: not at all 6. Feeling bad about yourself - or that you are a failure or have let yourself or your family down: not at all 7. Trouble concentrating on things, such as reading the newspaper or watching television: not at all 8. Moving or speaking so slowly that other people could have noticed. Or the opposite - being so fidgety or restless that you have been moving around a lot more than usual: not at all 9. Thoughts that you would be better off or of hurting yourself in some way: not at all Total score: 0 Source: Developed by Drs. Grzegorz Barragan, Judi Calvillo, Kb Baker and colleagues, with an educational leticia from [employer]. Thrive Questionnaire Date Thrive assessed: 12/02/24 I am a: Patient What is your living situation today?: I have a steady place to live Within the past 12 months, did the food you bought not last and you didn't have the money to get more?: Never true Within the past 12 months, did you worry whether your food would run out before you got money to buy more?: Never true Do you have trouble paying for medicines?: No Do you have trouble getting transportation to medical appointments?: No Do you have trouble paying your heating and electricity bill?: No Do you have trouble taking care of your child, family member or friend?: No Do you have trouble with day-to-day activities such as bathing, preparing meals, shopping, managing finances, etc.?: No Are you currently unemployed and looking for a job?: No Are you interested in more education?: No Please select the resources that you would like help with: None Currently or been in a relationship where the following occur: No concerns reported THRIVE Score: 0 AUDIT C Alcohol Use Questionnaire (AUDIT-C) 1. How often do you have a drink containing alcohol?: 2-4 times a month 2. How many drinks containing alcohol do you have on a typical day when you are drinking?: 3 or 4 3. How often do you have six or more drinks on one occasion?: Less than monthly Total Score: 4 MO-7 AMB Questionnaire MO-7 Date MO - 7 assessed: 03/07/25 Feeling nervous, anxious, or on edge: 0 = Not at all Not being able to stop or control worryin = Not at all Worrying too much about different things: 0 = Not at all Trouble relaxin = Not at all Being so restless that it is hard to sit still: 0 = Not at all Becoming easily annoyed or irritable: 0 = Not at all Feeling afraid as if something awful might happen: 0 = Not at all Total MO-7 score (0-4 normal; 5-9 mild; 10-14 moderate; 15-21 severe): 0 Source: Developed by Drs. Grzegorz Barragan, Judi Calvillo, Kb Baker and colleagues, with an educational leticia from [employer]. Review of Systems Const Reports daytime sleepiness, Reports difficulty sleeping, Denies headache(s) and Reports snoring Eyes Denies loss of vision ENT Denies vertigo, Denies dizziness, Denies headache(s) and Denies sore throat Card Denies chest pain, Denies leg edema and Denies lightheadedness Resp Denies cough, Denies hemoptysis, Reports snoring and Denies wheezing GI Denies abdominal pain, Denies melena, Denies constipation, Denies diarrhea and Denies vomiting Denies dysuria, Denies urinary frequency and Denies urinary urgency Musc Denies arthralgias, Denies joint swelling, Denies numbness and Denies tingling Neuro Denies Abnormal speech present, Denies behavioral changes, Denies vertigo, Denies dizziness, Denies headache(s), Denies loss of vision, Denies memory loss, Denies numbness and Denies tingling Psych Denies anxiety, Denies behavioral changes, Denies depression, Denies memory loss and Denies panic attacks Jonathan/Lymph Denies easy bleeding and Denies easy bruising Aller/Immun Denies wheezing Physical exam (Primary Care) Vital Signs: Last Vital Signs Temp 97.3 F 06/10/25 15:28 Pulse 63 06/10/25 15:28 BP 119/80 06/10/25 15:28 Pulse Ox 96 06/10/25 15:28 Oxygen Delivery Method Room Air 06/10/25 15:28 Tobacco/Smoking Status: Tobacco use Status Tobacco use date assessed 03/07/25 06/10/25 15:23 Patient Tobacco Use Status Never used Tobacco 06/10/25 15:23 Tobacco use type 03/11/25 08:21 e-Cigarette/Vaping Use Never Used 06/10/25 15:23 PHQ-9: PHQ-9 Score PHQ-9: Total score 0 06/10/25 15:38 Thrive Assessment: Date of Thrive Assessment Date Thrive assessed 12/02/24 06/10/25 15:23 Currently or been in a relationship where the following occur: No concerns reported Const General: healthy appearing, no acute distress, alert and awake Nutritional Appearance: well nourished Orientation/consciousness: oriented to person, oriented to place and oriented to time HENMT Ears: TM's normal bilaterally General nose exam: Normal nasal mucous membranes and turbinates present Eyes Conjunctivae: conjunctivae normal Sclerae: sclerae normal Pupils: Equal, round and reactive pupils present Neck Neck: Yes no lymphadenopathy and Yes no JVD Thyroid: Thyroid normal Carotids: no bruits Resp Effort & Inspection: normal respiratory effort and not tachypneic Auscultation: no crackles, no rales, no rhonchi and no wheezes Cardio Rate: regular rate Rhythm: regular rhythm Heart sounds: S1 normal heart sound present, S2 normal heart sound present, no murmurs and normal S1 and S2 GI Palpation (GI): Soft to palpation, nontender, no hepatomegaly and no splenomegaly Auscultation: normal bowel sounds Skin General skin exam: no rashes or lesions noted and dry skin Neuro General: oriented to person, oriented to place and oriented to time Cranial nerves: Yes Equal, round and reactive pupils present Speech: No Abnormal speech present Gait exam (Neuro): Normal gait present Motor exam (neuro): no tremor noted Extrem Right upper extremity: full ROM Left upper extremity: full ROM Right lower extremity: full ROM; no edema Left lower extremity: full ROM; no edema Psych Mental Status: mental status grossly normal Speech and movement: Normal speech and movement present Affect: normal affect Attitude: cooperative Thought process: Normal thought process present Results Reviewed Results Reviewed: Laboratory Tests 03/06/25 05/28/25 06:47 06:31 WBC 7.6 RBC 4.96 Hgb 13.7 L Hct 42.1 MCV 84.9 MCH 27.6 MCHC 32.5 RDW 13.2 Plt Count 356 Sodium 142 Potassium 3.3 Chloride 105 Carbon Dioxide 27 Anion Gap 13 BUN 25 H Creatinine 1.11 Estimated GFR > 60 Random Glucose 93 Estimat Average Glucose 111 Hemoglobin A1c % 5.5 Insulin Level 12 Calcium 9.4 Iron 51 TIBC 255 % Saturation 20 Unsat Iron Binding 204 Ferritin 399 H Total Bilirubin 0.6 AST 32 ALT 29 Alkaline Phosphatase 48 C-Reactive Protein 1.72 H Total Protein 7.5 Albumin 4.7 Triglycerides 127 Cholesterol 205 H LDL Cholesterol, Calc 145 H HDL Cholesterol 35 L Vitamin A 83 Vitamin B1 13 Vitamin B12 508 25-OH Vitamin D Total 41.7 Folate 12.9 TSH 2.79 Urine Color Yellow Urine Appearance Clear Urine pH 5.5 Ur Specific Lovilia >= 1.030 H Urine Protein Trace Urine Glucose (UA) Negative Urine Ketones Trace Urine Blood Negative Urine Nitrite Negative Ur Leukocyte Esterase Negative Urine Creatinine 351.40 Urine Microalbumin 17.0 Microalb/Creat Ratio 4.8 Zinc 92 Coding Level of Care Code Est Pt Level 3 (43974) Diagnoses Hypertension, unspecified type I10 Hypertension type: unspecified Mixed hypercholesterolemia and hypertriglyceridemia E78.2 Morbid obesity E66.01 Mild intermittent asthma without complication J45.20 Asthma complication type: uncomplicated Asthma persistence: intermittent Asthma severity: mild BRUNA (obstructive sleep apnea) G47.33 Elevated ferritin level R79.89 Time Spent (min) 34 Assessment & Plan Assessment & Plan (1) Hypertension: Code(s): I10 - Essential (primary) hypertension Category: Medical Qualifiers: Hypertension type: unspecified Qualified Code(s): I10 - Essential (primary) hypertension Plan: Blood pressure is 118/80 -within goal Reinforced low-salt diet and activity as tolerated Continue hydrochlorothiazide 25 mg daily, metoprolol tartrate 100 mg b.i.d., amlodipine increased to 10 mg daily (2) Mixed hypercholesterolemia and hypertriglyceridemia: Code(s): E78.2 - Mixed hyperlipidemia Category: Medical Plan: Triglycerides 127, total cholesterol 205, LDL 145 increased from 124 mg/dL three-month ago. While triglycerides have improved, LDL cholesterol has increased and HDL has slightly decreased. This is likely secondary to his high-protein diet, which includes red meat. The patient was counseled on dietary sources of high cholesterol, including red meat, egg yolks, shellfish, and pork, as well as the impact of preparation methods. A list of high-cholesterol foods will be provided. The patient will continue his omega-3 supplement. Labs will be rechecked in 3 months. (3) Morbid obesity: Code(s): E66.01 - Morbid (severe) obesity due to excess calories Category: Medical Plan: Encouraged diet and an exercise to lose weight (4) Asthma: Code(s): J45.909 - Unspecified asthma, uncomplicated Category: Medical Qualifiers: Asthma complication type: uncomplicated Asthma persistence: intermittent Asthma severity: mild Qualified Code(s): J45.20 - Mild intermittent asthma, uncomplicated Plan: Denies dyspnea Continue Ventolin HFA 2 puffs q.6 p.r.n. (5) BRUNA (obstructive sleep apnea): Code(s): G47.33 - Obstructive sleep apnea (adult) (pediatric) Category: Medical Plan: Sleep study completed on 02/17/2025 shows: Obstructive sleep apnea, very severe, total sleep time AHI 44 in his snoring 444% of sleep time. There is also significant nocturnal hypoxemia with average oxygen sat at 90% lowest that it was 78% oxygenl, low 88% for 81 minutes. Recommendation for CPAP titration in the lab. Sleep medicine referral was placed. The patient reports significant benefit from CPAP therapy, with resolution of daytime somnolence and decreased use of his asthma inhaler. He will continue current CPAP therapy. (6) Elevated ferritin level: Code(s): R79.89 - Other specified abnormal findings of blood chemistry Category: Medical Plan: Levels ordered by weight management. Ferritin level is slightly elevated, which may be related to his high-protein, [id number] diet. Liver enzymes are normal, and the level is not critical. This will be monitored with repeat labs in 3 months. Follow up with weight management as scheduled.
[2025-06-10 15:28] VITALS: BP 119/80; PULSE 63; TEMP 36.3; O2SAT 96
--- OUTSIDE RECORDS SUMMARY | 2025-06-10 18:11 | XMS_ITS | Clinical Summary ---
Author Organization [facility] Address [address] [place] [address] Phone Care Team Providers Care Print Line Feeder Name Role Phone Omar Fajardo MD Primary Care Provider [phone] Allergies Active Allergy Reactions Criticality Noted Date [...] topic Medical Devices Not on file [facility] [place] [address] [address] [place] [address] [place] [address] HMO POS [facility] [place] [address] [place] [address] HMO POS [facility] HMO POS [facility] HMO POS [facility] HMO POS [facility] HMO POS Care Teams Print Line Feeder Relationship Specialty Start Date End Date Omar Fajardo MD [address] [place] [address] [place] [address] PCP - General 12/07/21 Additional Source Comments The information contained in this document represents components of the legal health record. It is not the complete legal health record.[facility]
== END 2025-06-10 16:09 | disposition home or self-care (01) ==
LOC: HO.HMCH 15:26
DX: I10 Essential (primary) hypertension (principal); E78.2 Mixed hyperlipidemia; E66.01 Morbid (severe) obesity due to excess calories; J45.20 Mild intermittent asthma, uncomplicated; G47.33 Obstructive sleep apnea (adult) (pediatric); R79.89 Other specified abnormal findings of blood chemistry

== ENCOUNTER 2025-06-12 12:53 | Outpatient (AMB) | payer BC, SELFPAY ==
--- NOTE | 2025-06-12 13:08 | MHC.OFFVIS ---
Vital Signs 06/12/25 13:09 Height 5 ft 6 in Weight 313 lb 8 oz BMI 50.6 BP 126/88 Blood Pressure Location Rt brachial Position Sitting Pulse 58 Pulse Source Pulse Oximeter Pulse Oximetry (%) 96 Oxygen Delivery Method Room Air Intake Visit Reasons: 3 mnts f/u appt-Conf Intake Note: Patient presents follow up BRUNA. Compliance in chart(49/49days, >=4hrs-94%, Average Usage-5hr h1min, Med Pressure-13.2, Med Leaks-0.2, AHI-0.6). Accompanied by: Self / Same As Patient Allergies ibuprofen (Advil) Allergy (Unknown, Verified 06/12/25 13:11) hives HPI Comments Details: 44 year old male with HTN is referred to us by his pcp for evaluation of sleep apnea. HST c/w AHI-44, oxygen nadirs to 78%, nocturnal hypoxemia in lab titration is needed once established on cpap therapy. BRUNA Compliance Report reviewed Apr 2025- May 2025. Total avg use is 49/49 days and >4 hours 94%. Avg use is 5 hours Med press 13.2cmH20 and Leaks 0.2cmH20 AHI is 0.6/hr. He washes his mask, rinses hoses, changes filters, fills reservoir with water. He now does not take afternoon naps, and notices a major improvement during his afternoon conferences, non-drowsy driving. He goes to bed at 10pm and wakes up at 5:30am.He no longer snores and his sleeps well now. He uses the nasal pillow n-20 air fit mask, notices it is wearing out now, will get new supplies. He no longer has multiple night time arousals and BP has normalized. Denies morning headaches and denies bruxism, Gerd, and parasomnias. His mood and memory is stable. He has numbness, and lack of sensation to heat, cold, pain in his l. lateral posterior aspect of thigh, denies lower back injury. He denies RLS.He is trying to lose weight, and walks 2-3 miles, 2x/week he gets discouraged as he is not seeing results. BMI is 50. He continues on a low calorie, high protein diet and a solid nutritional plan along with zepbound, he has lost 18lbs and continues to lose 2/lbs /week. [facility] Medical History Obstructive sleep apnea on CPAP Uncontrolled hypertension Morbid obesity Hypertension Surgical History History of wisdom tooth extraction Family History Father No problems noted. Mother No problems noted. Social History Housing: House Alcohol intake: current Alcohol intake frequency: holidays/special occasions only Patient Tobacco Use Status: Never used Tobacco e-Cigarette/Vaping Use: Never Used Second Hand Smoke Exposure: No service: No Current occupational status: employed Current occupational exposures/hazards: No Cognitive needs: No Hearing needs: No Vision needs: Yes (glasses) Physical Exam Vital Signs: Last Vital Signs Pulse 58 06/12/25 13:09 BP 126/88 06/12/25 13:09 Pulse Ox 96 06/12/25 13:09 Oxygen Delivery Method Room Air 06/12/25 13:09 BMI result Body Mass Index 50.6 Const General: cooperative, comfortable and no acute distress Nutritional Appearance: obese (BMI is 52) morbidly obese Orientation/consciousness: patient oriented x3 HEENT Face and sinus: Yes face symmetric Throat: Yes other (mallampti score is 4) Eyes Pupils: Equal, round and reactive pupils present Neck Neck: Yes full ROM Resp Effort & Inspection: normal respiratory effort and able to speak in complete sentences Neuro General: patient oriented x3 and moves all extremities Cranial nerves: Yes Facial sensation intact/muscles of mastication intact, Yes Equal, round and reactive pupils present, Yes Normal facial strength present, Yes Midline tongue present, Yes Ability to bilaterally rotate head present and Yes Ability to bilaterally elevate shoulders present Cognition (Neuro): normal cognition Gait exam (Neuro): Normal gait present Motor exam (neuro): 5/5 motor strength present throughout and Normal motor muscle tone present throughout Deep tendon reflexes (DTR's): Right triceps reflex intensity grade: 2+, Left triceps reflex intensity grade: 2+, Rt Biceps (C5, C6): 2+, Left biceps reflex intensity grade: 2+, Right brachioradialis reflex intensity grade: 2+, Left brachioradialis reflex intensity grade: 2+, Right patellar reflex intensity grade: 2+, Left patellar reflex intensity grade: 2+, Right ankle reflex intensity grade: 2+ and Left ankle reflex intensity grade: 2+ Psych Appearance: grossly normal Thought process: Normal thought process present Thought content: Normal thought content present Insight: Good insight present (Psych) Results Reviewed Results Reviewed: BRUNA Compliance Report reviewed Apr 2025- May 2025. Total avg use is 49/49 days and >4 hours 94%. Avg use is 5 hours Med press 13.2cmH20 and Leaks 0.2cmH20 AHI is 0.6/hr. He washes his mask, rinses hoses, changes filters, fills reservoir with water. Labs reviwed with pt. Assessment & Plan Assessment & Plan (1) BRUNA (obstructive sleep apnea): Code(s): G47.33 - Obstructive sleep apnea (adult) (pediatric) Category: Medical (2) Chronic fatigue: Code(s): R53.82 - Chronic fatigue, unspecified Category: Medical (3) Obesity: Code(s): E66.9 - Obesity, unspecified Category: Medical Qualifiers: Obesity type: due to excess calories Obesity classification: adult class 3 (BMI >= 40) Serious obesity comorbidity presence: unspecified whether serious comorbidity present Body mass index: BMI 50.0-59.9 Qualified Code(s): E66.813 - Obesity, class 3; Z68.43 - Body mass index [BMI] 50.0-59.9, adult (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 BMI is elevated continue f/u with wm Dr Rodrigues, and zepbound pt has lost 18+ pounds. Continue to walk, and stay hydrated. Labs reviewed with pt. ferritin is elevated, will stop otc iron, however could be an inflammatory process as he did have an ac/joint injury, creatinine kinase elevated, due to inflammation? EMG / NCS -Will r/o radiculopathy/ sensory or axonal with EMG/ L.sided, possible sciatica? F/U in 3 months for compliance, may discuss titration at this time, though doing well on auto pap. Orders: Orders NE electromyogram (EMG) Today G57.92 - Unspecified mononeuropathy of left lower limb NE nerve conduction velocity Today G57.92 - Unspecified mononeuropathy of left lower limb Patient Instructions: Sleep Hygiene provided: set a scheduled bedtime and wake time to help regulate the circadian rhythm and balance the release of pituitary hormones. Sleep in a dark room, temperatures below 68 degrees, and no devices n bed. Limit caffeinated products 6 hours prior to bed, and limit fluids 2-4 hours prior to bed. Gentle night yoga, diffusing essential oils, and playing soft music can be relaxing. 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
[2025-06-12 13:09] VITALS: BP 126/88; PULSE 58; O2SAT 96; BMI 50.6
--- OUTSIDE RECORDS SUMMARY | 2025-06-12 15:52 | XMS_ITS | Clinical Summary ---
Author Organization [facility] Address [address] [place] [address] Phone Care Team Providers Care Rn Pain Management Name Role Phone Omar Fajardo MD Primary Care Provider [phone] Allergies Active Allergy Reactions Criticality Noted Date [...] Medical Devices Not on file [facility] [place] [address] [place] [address] [place] [address] [place] [address] HMO POS [facility] [place] [address] [place] [address] HMO POS [facility] POS [facility] HMO POS [facility] HMO POS [facility] H[facility] POS Care Teams Rn Pain Management Relationship Specialty Start Date End Date Omar Fajardo MD [address] [place] [address] [place] [address] PCP - General 12/07/21 Additional Source Comments The information contained in this document represents components of the legal health record. It is not the complete legal health record.[facility]
== END 2025-06-12 13:40 | disposition home or self-care (01) ==
LOC: HO.HSMS 12:54
PROVIDERS: Visit Provider Physician Assistant Medical
DX: G47.33 Obstructive sleep apnea (adult) (pediatric) (principal); R53.82 Chronic fatigue, unspecified; E66.813 Obesity, class 3; Z68.43 Body mass index [BMI] 50.0-59.9, adult; G57.92 Unspecified mononeuropathy of left lower limb
CPT/HCPCS: 99214

== ENCOUNTER 2025-06-20 10:44 | Outpatient (AMB) | payer BC, SELFPAY ==
--- NOTE | 2025-06-20 11:17 | MHC.WMTHER ---
Intake Intake Visit Reasons: OV BH Intake Allergies ibuprofen (Advil) Allergy (Unknown, Verified 06/15/25 15:05) hives [facility] Medical History Obstructive sleep apnea on CPAP Uncontrolled hypertension Morbid obesity Hypertension Surgical History History of wisdom tooth extraction Family History Father No problems noted. Mother No problems noted. Social History Housing: House Alcohol intake: current Alcohol intake frequency: holidays/special occasions only Patient Tobacco Use Status: Never used Tobacco e-Cigarette/Vaping Use: Never Used Second Hand Smoke Exposure: No service: No Current occupational status: employed Current occupational exposures/hazards: No Cognitive needs: No Hearing needs: No Vision needs: Yes (glasses) Behavioral Health Assessment Weight Management Therapy Therapy Notes Details The patient is a 45-year-old male presenting for a behavioral health assessment as part of the surgical weight loss program. He was initially referred by his sleep apnea specialist. Presenting Concerns Precipitating Event Obesity. Living Situation Current Living Situation Own At risk of losing current housing? No Satisfied with current living situation? Yes Comments PT lives with his , 2 daughters and 2 dogs. Food/Weight/Diet Expectations of change PT started the program on 05/21/2025 at 329Lbs, and the initial goal is to lose 10% of his weight before surgery, which is about 29lbs. Ultimate weight goal: 300lbs before surgery. Last weight 307Lbs as of 06/18/2025. Patient wants to improve his lifestyle and health conditions. PT is implementing the following: Current meal plan: 2 protein shakes, 3 protein bars and one meal per day. Exercise plan: treadmill. scale: yes Communication w/ provider: weekly on Wednesdays. History/Relationship with food PT reports he loves food and enjoy cooking, a challenges is that he wants to eats it all. Example of meals before starting the program: Breakfast: 6am (eggs, toast and banana) Lunch: 11am-12pm (sandwiches) Dinner: 6-7pm (pasta, burgers) Snacks: 4pm (chips or fruit), 9pm (candy occasionally) Exercise: full gym at work Beverages: Coffee (10oz cup/d with creamer), Tea: none, Soda: none, Juice: none, ETOH: 1/wk (Whiskey or beer) History/Relationship with weight Denies being overweight in childhood. He has around 185Lbs in HS. Play football in college and was around 200Lbs. PT reports a slow weight gain after stop playing. In the last 10 years, the patient's Lowest weight was 275Lbs and highest 334Lbs History/Relationship with dieting Self diets and exercise Started Zepbound 5 weeks ago and has lost 21Lbs. Binge Eating Do you frequently eat large amounts of food in short periods of time, not feeling physically hungry? Yes Do you feel out of control when you eat a large amount of food in a short period of time? No Do you eat large amounts of food rapidly and typically alone? No Night Eating Do you wake up at least once during the night to eat? No If you wake up in the night, do you find that it is necessary to eat something in order to fall back asleep? No Do you have little or no appetite in the morning and feel very hungry in the evening, often overeating between dinner and when you go to bed? No Social History Family history and relationship PT is 18 years ago, they have 2 daughters 15 and 12. Parents alive, has 1 brothers. PT reports he has a very close family dynamics. 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 Developmental history and status None. currently. Social support Family. Community support Some friends and co-workers. 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 Islam/Spirituality Religion. Cultural/Ethnic information biratial, dad black and mom while Legal Involvement and History Current or historical involvement with the legal system? None. Education Highest grade completed Masters degree. Preferred learning style Learn by doing Currently enrolled in educational program? No Interested in further educational program? 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 ) Wants help to find employment? No Meaningful activities watch football, family activities, cooking. Financial Situation Describe current financial situation Comfortable Financial assistance? None Service Service? No Mental Health and Addiction Treatment Current/Past substance abuse? No Comments Alcohol: 1x week, 2-3 drinks. Cigarettes/Tobacco: None Cannabis/Edibles: None Current/Past addictive behavior concerns? No Psychiatric history The patient denies any history of mental health crises or inpatient psychiatric treatment. He is not currently engaged in counseling or any form of mental health treatment. There is no past or current concern for suicidal ideation, suicide attempts, self-harm, or harm to others. Medical and Physical Health Summary Additional Medical History not covered in history None reported Sexual History concerns None reported. Physical exam in the last year? Yes Pain Screening Current pain? No Pain in the last few months? No Medications Is the patient compliant with medications? Yes Does the patient have Verma Guardian in place? Not applicable Does the patient use complimentary health approaches? No Trauma/Abuse History History of trauma? No (ALEX: 0) Questionnaires PHQ-9 Over the last 2 weeks, how often have you been bothered by any of the following problems? 1. Little interest or pleasure in doing things: not at all 2. Feeling down, depressed, or hopeless: not at all 3. Trouble falling or staying asleep, or sleeping too much: not at all 4. Feeling tired or having little energy: not at all 5. Poor appetite or overeating: not at all 6. Feeling bad about yourself - or that you are a failure or have let yourself or your family down: not at all 7. Trouble concentrating on things, such as reading the newspaper or watching television: not at all 8. Moving or speaking so slowly that other people could have noticed. Or the opposite - being so fidgety or restless that you have been moving around a lot more than usual: not at all 9. Thoughts that you would be better off or of hurting yourself in some way: not at all Total score: 0 Depression Screening Interpretation: Negative (Score from new PT pack: 8) Depression Screening Done: Yes 27726 - PHQ-9 Billing: Yes Source: Developed by Drs. Grzegorz Barragan, Jdui Calvillo, Kb Baker and colleagues, with an educational leticia from [employer]. Binge Eating Scale Group 1 A. I don't feel self-conscious about my wt. or body size when I'm with others. B. I feel concerned about how I look to others, but it normally does not make me fell disappointed with myself C. I do get self-conscious about my appearance and wt. which makes me feel disappointed in myself. D. I feel very self-conscious about my wt. and frequently I feel intense shame and disgust for myself. I try to avoid social contacts because of my self-consciousness. Response Group 1: C Group 2 A. I don't have any difficulty eating slowly in the proper manner. B. Although I seem to gobble down foods, I don't end up feeling stuffed because of eating to much. C. At times, I tend to eat quickly and then, I feel uncomfortably full afterwards. D. I have the habit of bolting down my food, without really chewing it. When this happens I usually feel uncomfortably stuffed because I've eaten to much. Response Group 2: A Group 3 A. I feel capable to control my eating urges when I want to. B. I feel like I have failed to control my eating more than the average person. C. I feel utterly helpless when it comes to feeling in control of my eating urges. D. Because I feel so helpless about controlling my eating I have become very desperate about trying to get control. Response Group 3: B Group 4 A. I don't have the habit of eating when I'm bored. B. I sometimes eat when I'm bored, but often I'm able to get busy and get my mind off food. C. I have a regular habit of eating when I'm bored, but occasionally, I can use some other activity to get my mind off eating. D. I have a strong habit of eating when I'm bored. Nothing seems to help me breath the habit. Response Group 4: C Group 5 A. I'm usually physically hungry when I eat something. B. Occasionally, I eat something on impulse even though I really am not hungry. C. I have the regular habit of eating foods, that I might not really enjoy, to satisfy a hungry feeling even though physically, I don't need the food. D. Although I'm not physically hungry, I get a hungry feeling in my mouth that only seems to be satisfied when I eat a food, like sandwich, that fills my mouth. Sometimes, when I eat the food to satisfy my mouth hunger, I then spit the food out so I won't gain weight. Response Group 5: B Group 6 A. I don't feel any guilt or self-hate after I overeat. B. After I overeat, occasionally I feel guilt or self-hate. C. Almost all the time I experience strong guilt or self-hate after I overeat. Response Group 6: B Group 7 A. I don't lose total control of my eating when dieting even after periods when I overeat. B. Sometimes when I eat a forbidden food on a diet, I feel like I blew it and eat even more. C. Frequently, I have the habit of saying to myself, I've blown it now, why not go all the way, when I overeat on a diet. When that happens I eat more. D. I have a regular habit of starting a strict diets for myself but I break the diets by going on an eating binge. My life seems to be either a feast or famine. Response Group 7: B Group 8 A. I rarely eat so much food that I feel uncomfortably stuffed afterwards. B. Usually about once a month, I each such a quantity of food, I end up feeling very stuffed. C. I have regular periods during the month when I eat large amounts of food, either at mealtime or at snacks. D. I eat so much food that I regularly feel quite uncomfortable after eating and sometimes a bit nauseous. Response Group 8: C Group 9 A. My level of calorie intake does not go up very high or go down very low on a regular basis. B. Sometimes after I overeat, I will try to reduce my caloric intake to almost nothing to compensate for the excess calories I've eaten. C. I have a regular habit of overeating during the night. It seems that my routine is not to be hungry in the morning but overeat in the evening. D. In my adult years, I have had week-long periods where I practically starve myself. This follows periods when I overeat. It seems I live a life of either feast or famine. Response Group 9: C Group 10 A. I usually am able to stop eating when I want to. I know when enough is enough. B. Every so often, I experience a compulsion to eat which I can't seem to control. C. Frequently, I experience strong urges to eat which I seem unable to control, but at other times I can control my eating urges. D. I feel incapable of controlling urges to eat. I have a fear of not being able to stop eating voluntarily. Response Group 10: B Group 11 A. I don't have any problem stopping eating when I feel full. B. I usually can stop eating when I feel full but occasionally overeat leaving me feeling uncomfortably stuffed. C. I have a problem stopping eating once I start and usually I feel uncomfortably stuffed after I eat a meal. D. Because I have a problem not being able to stop eating when I want, I sometimes have to induce vomiting to relieve my stuffed feeling. Response Group 11: B Group 12 A. I seem to eat just as much when I'm with others, Family social gatherings as when I'm by myself. B. Sometimes, when I'm with other persons, I don't eat as much as I want to eat because I'm self-conscious about my eating. C. Frequently, I eat only a small amount of food when others are present, because I'm very embarrassed about my eating. D. I feel so ashamed about overeating that I pick times to overeat when I know no one will see me. I feel like a closet eater. Response Group 12: B Group 13 A. I eat three meals a day with only an occasional between meal snack. B. I eat 3 meals a day, but I also normally snack between meals. C. When I am snacking heavily, I get in the habit of skipping regular meals. D. There are regular periods when I seem to be continually eating, with no planned meals. Response Group 13: B Group 14 A. I don't think much about trying to control unwanted eating urges. B. At least some of the time, I feel my thoughts are pre-occupied with trying to control my eating urges. C. I feel that frequently I spend much time thinking about how much I ate or about trying not to eat anymore. D. It seems to me that most of my waking hours are pre-occupied by thoughts about eating or not eating. I feel like I'm constantly struggling not to eat. Response Group 14: A Group 15 A. I don't think about food a great deal. B. I have strong craving for food but they last only for brief periods of time. C. I have days when I can't seem to think about anything else but food. D. Most of my days seem to be pre-occupied with thoughts about food. I feel like I live to eat. Response Group 15: B Group 16 A. I usually know whether or not I'm physically hungry. I take the right portion of food to satisfy me. B. Occasionally, I feel uncertain about knowing whether or not I'm physically hungry. A these times it's hard to know how much food I should take to satisfy me. C. Even though I might know how many calories I should eat, I don't have any idea what is a normal amount of food for me. Response Group 16: C Binge Eating Score: 19 Score less than 17 Minimal Risk Score between 18-26 Moderate Risk Score between 27-46 High Risk Assessment & Plan Assessment & Plan (1) Adjustment disorder: Code(s): F43.20 - Adjustment disorder, unspecified Qualifiers: Adjustment disorder type: unspecified type Qualified Code(s): F43.20 - Adjustment disorder, unspecified (2) Pre-bariatric surgery psychological evaluation: Code(s): Z71.89 - Other specified counseling Plan Following a comprehensive behavioral health assessment?including review of the Binge Eating Scale, PHQ-9, mental status evaluation, and patient self-report?there are currently no behavioral health contraindications to proceeding with bariatric surgery. The patient demonstrates appropriate insight, motivation, and psychological readiness for the procedure. No active psychiatric symptoms or maladaptive eating behaviors were identified that would impede surgical outcomes at this time. The patient is cleared from a behavioral health perspective to proceed with bariatric surgery and documentation can be submitted for insurance approval as indicated. PT will return for a follow-up behavioral health visit 1?4 weeks postoperatively to monitor psychological adjustment, reinforce coping strategies, and screen for any emerging concerns such as mood changes, adjustment difficulties, or disordered eating patterns. Additional behavioral health support will be provided as needed based on postoperative assessment. Next marina: 1-4 weeks PO[place] [address] Psy Diag Eval Patient Type New Diagnoses Adjustment disorder, unspecified type F43.20 Adjustment disorder type: unspecified type Pre-bariatric surgery psychological evaluation Z71.89 Additional Codes PHQ-9 - 83482 - PHQ-9 Billing: Yes ([id number]) Time Spent (min) 60
== END 2025-06-20 13:25 | disposition home or self-care (01) ==
LOC: HO.HBST 10:45
PROVIDERS: Visit Provider Counselor Mental Health
DX: F43.20 Adjustment disorder, unspecified (principal); Z71.89 Other specified counseling
CPT/HCPCS: 90791

== ENCOUNTER 2025-07-15 14:11 | Outpatient (REF) | payer BC, SELFPAY ==
--- NOTE | 2025-07-15 15:08 | EMG_ITS ---
Chief complaint: Numbness in left thigh Referred by:Nelson Anna nps Procedure done: Left lower extremity NCS/EMG Left tibial and peroneal motor studies were performed with F responses and tibial H-reflex. Left superficial peroneal and sural sensory study was performed and left lateral femoral cutaneous sensory study was performed. Findings: Motor studies did not reveal any significant abnormality. Superficial peroneal and sural sensory studies were also normal. Lateral femoral cutaneous study revealed decreased amplitude and moderately slow conduction velocity. Needle examination did not reveal any significant abnormality. 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
--- OUTSIDE RECORDS SUMMARY | 2025-07-15 20:10 | XMS_ITS | Clinical Summary ---
Author Organization [facility] Address [address] [place] [address] Phone Care Team Providers Care Associate Professor Of Radiology Name Role Phone Omar Fajardo MD Primary Care Provider [phone] Allergies Active Allergy Reactions Criticality Noted Date [...] Medical Devices Not on file [facility] [place] [address] [place] [address] [place] [address] [place] [address] HMO POS [facility] [place] [address] [place] [address] HMO POS [facility] HMO POS [facility]MO POS [facility] HMO POS [facility] HMO POS Care Teams Associate Professor Of Radiology Relationship Specialty Start Date End Date Omar Fajardo MD [address] [place] [address] [place] [address] PCP - General 12/07/21 Additional Source Comments The information contained in this document represents components of the legal health record. It is not the complete legal health record.[facility]
== END 2025-07-15 14:12 | disposition home or self-care (01) ==
LOC: HO.NEURO 14:11
PROVIDERS: Visit Provider Physician Assistant Medical
DX: R20.0 Anesthesia of skin (principal); G57.92 Unspecified mononeuropathy of left lower limb
CPT/HCPCS: 95886; 95909

== ENCOUNTER → 2025-07-15 15:08 | Outpatient (BNV) | payer BC, SELFPAY | PROVIDERS: Visit Provider Psychiatry & Neurology Neurology | DX: G57.92 Unspecified mononeuropathy of left lower limb (principal) | CPT/HCPCS: 95886; 95908 ==